=== PATIENT | female | born 1950 | race Caucasian/White ===

== ENCOUNTER → 2018-04-02 14:51 | Outpatient (CLI) | payer MEDICARE, OTHER, SELFPAY ==
--- NOTE | 2018-04-02 14:53 | DI.RAD.S_ITS ---
PROCEDURE: XR LUMBAR SPINE 2-3V INDICATIONS: lbp TECHNIQUE: 3 views of the lumbar spine were acquired. COMPARISON: [facility], CT, ABDOMEN/PELVIS WITH CONTRAST, 02/15/2011, 10:19. [facility], CR, L-SPINE 2-3 VIEWS, 06/20/2014, 16:33. FINDINGS: Bones: No fracture or focal osseous destruction. Hypoplastic 12th ribs. Mild narrowing of the lumbar disc spaces throughout grossly unchanged since 06/20/14, most pronounced at L2-L3. Diffuse facet arthropathy. Mild bilateral hip joint degeneration. Soft tissues: Cholelithiasis incidentally noted. There are scattered aortic vascular calcifications. IMPRESSION: Multilevel lumbar disc degeneration and facet arthropathy. No definite interval change since 06/20/14. Dictated by: Rojelio Rivas M.D. on 04/02/2018 at 15:36 Approved by: Rojelio Rivas M.D. on 04/02/2018 at 15:41
== END ==
PROVIDERS: Family Provider Family Medicine; PCP Family Medicine; Visit Provider Family Medicine
DX: M51.36 Other intervertebral disc degeneration, lumbar region (principal); M47.816 Spondylosis without myelopathy or radiculopathy, lumbar region
CPT/HCPCS: 72100

== ENCOUNTER → 2018-04-10 08:55 | Outpatient (CLI) | payer MEDICARE, OTHER, SELFPAY ==
--- NOTE | 2018-04-10 08:57 | DI.MRI.S_ITS ---
PROCEDURE: MR LUMBAR SPINE WO CON INDICATIONS: Bilateral low back pain with right sciatica TECHNIQUE: Noncontrast sagittal T1 spin echo and T2 fast echo, sagittal STIR, axial T1 and T2 fast spin echo through the lumbar spine. In cases with scoliosis, additional coronal T2 fast spin echo may be performed. COMPARISON: [facility], CR, XR LUMBAR SPINE 2-3V, 04/02/2018, 14:34. [facility], CR, L-SPINE 2-3 VIEWS, 06/20/2014, 16:33. [facility], CR, L-SPINE 2-3 VIEWS, 02/04/2008, 15:23. FINDINGS: Image quality: Excellent. Alignment and Curvature: There is normal bony alignment. Bone Marrow: Marrow is of normal overall signal. Increased T1 and T2 signals present at L3 most suggestive of hemangioma. No acute vertebral body compression fractures. Spinal Cord: Conus medullaris terminates at the L2 level. Visualized cord demonstrates normal signal and size. Paraspinous Soft Tissues: No paravertebral masses. Discs: Mild to moderate desiccation is present at the lumbar spine most notable at L2-3, L3-4. L1-L2: No disc bulge, spinal stenosis or foraminal narrowing. Mild facet and ligamentum flavum hypertrophy is present. L2-L3: Mild disc bulge with superimposed posterior central/left paracentral protrusion/extrusion. There is moderate compromise of the left lateral recess as well as proximal left neuroforamina. Moderate to severe spinal stenosis is present with facet and ligamentum flavum hypertrophy. Overall, moderate bilateral foraminal narrowing is present. L3-L4: Mild disc bulge with small posterior central protrusion/extrusion. There is mild spinal stenosis with mild bilateral foraminal narrowing. Facet and ligamentum flavum hypertrophy are present. L4-L5: Mild disc bulge with trace posterior central protrusion. Mild spinal stenosis is present. Mild to moderate bilateral foraminal narrowing, left greater than right with facet and ligamentum flavum hypertrophy. L5-S1: Mild disc bulge without spinal stenosis. Minimal to mild bilateral foraminal narrowing with facet and ligamentum flavum hypertrophy. IMPRESSION: 1. Prominent disc bulge with superimposed protrusion/extrusion identified at L2-3 and to a lesser extent L3-4. There is moderate to severe spinal stenosis at L2-3 secondary to protrusion/extrusion as well as compromise of left lateral recess and proximal left neuroforamina. 2. Multilevel foraminal narrowing most notable at L2-3 secondary to facet/ligamentum flavum arthropathy as well as protrusion/extrusion as above. Dictated by: Agnes Girard M.D. on 04/10/2018 at 10:40 Approved by: Agnes Girard M.D. on 04/10/2018 at 10:55
== END ==
PROVIDERS: Family Provider Family Medicine; PCP Family Medicine; Visit Provider Family Medicine
DX: M51.26 Other intervertebral disc displacement, lumbar region (principal); M48.061 Spinal stenosis, lumbar region without neurogenic claudication; M99.73 Connective tissue and disc stenosis of intervertebral foramina of lumbar region
CPT/HCPCS: 72148

== ENCOUNTER → 2019-01-15 07:50 | Outpatient (CLI) | payer MEDICARE, OTHER, SELFPAY ==
[2019-01-15 08:56] LABS: Add Manual Diff / Slide Review NO; Basophils Absolute Auto 100 /uL (0-100); Basophils Percent Auto 1.3 % (0-2); Eosinophils Absolute Auto 300 /uL (0-450); Eosinophils Percent Auto 3.1 % (2-4); Hematocrit 44.4 % (36-46); Hemoglobin 15.4 g/dL (12.0-16.0); Lymphocytes Absolute Auto 2000 /uL (1100-4500); Lymphocytes Percent Auto 21.5 % (25-40); Mean Corpuscular HGB Conc 34.6 % (30-36); Mean Corpuscular Hemoglobin 31.3 PG (26-34); Mean Corpuscular Volume 90.3 fL (80-100); Monocytes Absolute Auto 800 /uL (0-900); Monocytes Percent Auto 9.1 % (3-14); Neutrophils Absolute Auto 6000 /uL (1500-7000); Platelet Count 145 X10^3/uL (150-400); Red Blood Cell Count 4.92 X10^6/uL (4.0-5.2); Red Cell Distribution Width 14.4 % (11.6-14.8); White Blood Cell Count 9.2 X10^3/uL (4.5-11.0)
[2019-01-15 09:10] LABS: Alanine Aminotransferase 34 IU/L (9-52); Albumin 4.2 g/dL (3.5-5.0); Albumin Globulin Ratio 1.2 (1.0-2.8); Alkaline Phosphatase 98 U/L (38-126); Aspartate Aminotransferase 25 IU/L (14-36); BUN Creatinine Ratio 14.3 (6-22); Bilirubin Total 0.5 mg/dL (0.2-1.3); Blood Urea Nitrogen 10 mg/dL (7-17); Calcium 9.7 mg/dL (8.4-10.2); Carbon Dioxide 28 mmol/L (22-32); Chloride 102 mmol/L (98-107); Cholesterol 179 mg/dL (140-199); Estimated Glomerular Filt Rate > 60.0 mL/min (>60); Globulin 3.6 g/dL (1.7-4.1); Glucose 138 mg/dL (80-110); HDL Cholesterol 43 mg/dL (40-60); HEMOLYSIS < 15 (0-50); LDL Cholesterol Calculated 105 mg/dL (<100); Potassium 4.4 mmol/L (3.4-5.1); Sodium 140 mmol/L (137-145); Total Protein 7.8 g/dL (6.3-8.2); Triglycerides 155 mg/dL (35-150)
== END ==
PROVIDERS: PCP Family Medicine; Visit Provider Family Medicine
DX: E03.9 Hypothyroidism, unspecified (principal); E78.2 Mixed hyperlipidemia; G62.9 Polyneuropathy, unspecified; I10 Essential (primary) hypertension
CPT/HCPCS: 36415; 80053; 80061; 84443; 85025

== ENCOUNTER → 2019-01-21 11:37 | Outpatient (CLI) | payer MEDICARE, OTHER, SELFPAY ==
[2019-01-21 12:10] LABS: Hemoglobin A1C% w Est Avg Glu 5.9 % (4.0-6.0)
[2019-01-21 14:49] LABS: Creatinine Urine Random 33.8 mg/dL
[2019-01-21 14:55] LABS: Microalbumi Creatinin Ratio Ur 17.7 ug/mg CR (<30); Microalbumin Urine Random < 0.6 mg/dL (0-1.6)
== END ==
PROVIDERS: PCP Family Medicine; Visit Provider Family Medicine
DX: E78.2 Mixed hyperlipidemia (principal); E03.9 Hypothyroidism, unspecified; G62.9 Polyneuropathy, unspecified; I10 Essential (primary) hypertension
CPT/HCPCS: 36415; 82043; 82570; 83036

== ENCOUNTER → 2019-07-29 11:20 | Outpatient (CLI) | payer MEDICARE, OTHER, SELFPAY ==
--- NOTE | 2019-07-29 | DI.MG.S_ITS ---
BILATERAL DIGITAL SCREENING MAMMOGRAM 3D/2D WITH CAD: 07/29/2019 CLINICAL: Routine screening. Family history of breast cancer. Comparison is made to exams dated: 06/20/2017 mammogram, 04/11/2015 mammogram, and 05/11/2013 mammogram - [facility]. The tissue of both breasts is heterogeneously dense. This may lower the sensitivity of mammography. Current study was also evaluated with a Computer Aided Detection (CAD) system. There are benign calcifications in both breasts. No significant masses, calcifications, or other findings are seen in either breast. There has been no significant interval change. IMPRESSION: There is no mammographic evidence of malignancy. A 1 year screening mammogram is recommended. This exam was interpreted at Station ID: [id number]. NOTE: For mammograms, a report in lay terms will be sent to the patient. Approximately 15% of breast malignancies will not be visualized mammographically. In the management of a palpable breast mass, a negative mammogram must not discourage biopsy of a clinically suspicious lesion. Electronically Signed By: Bob salazar/jose angel:07/29/2019 12:41:51 letter sent: Normal Exam ACR BI-RADS Category 2: Benign Finding(s) [id number]
== END ==
PROVIDERS: PCP Family Medicine; Visit Provider Family Medicine
DX: Z12.31 Encounter for screening mammogram for malignant neoplasm of breast (principal); Z80.3 Family history of malignant neoplasm of breast
CPT/HCPCS: 77063; 77067

== ENCOUNTER → 2019-09-24 10:08 | Outpatient (CLI) | payer MEDICARE, OTHER, SELFPAY ==
--- NOTE | 2019-09-24 10:13 | DI.RAD.S_ITS ---
PROCEDURE: XR CHEST 2V INDICATIONS: chest pain/dyspnea TECHNIQUE: 2 views of the chest were acquired. COMPARISON: [facility], , CHEST 1 VIEW, 03/29/2012, 17:42. FINDINGS: Surgical changes and devices: None. Lungs and pleura: Diffuse interstitial prominence appears unchanged. No focal infiltrate or consolidation. No pleural effusions or pneumothorax. Mediastinum: Mediastinal contours are normal. Heart size is normal. Bones and chest wall: No suspicious bony abnormalities. Soft tissues appear unremarkable. IMPRESSION: No acute cardiopulmonary disease. Chronic diffuse interstitial prominence, unchanged. Dictated by: Gavin Diaz M.D. on 09/24/2019 at 11:03 Approved by: Gavin Diaz M.D. on 09/24/2019 at 11:04
[2019-09-24 10:43] LABS: Add Manual Diff / Slide Review NO; Basophils Absolute Auto 100 /uL (0-100); Basophils Percent Auto 1.1 % (0-2); Eosinophils Absolute Auto 200 /uL (0-450); Hemoglobin 15.1 g/dL (12.0-16.0); Lymphocytes Absolute Auto 2500 /uL (1100-4500); Lymphocytes Percent Auto 26.5 % (25-40); Mean Corpuscular HGB Conc 34.4 % (30-36); Mean Corpuscular Hemoglobin 31.3 PG (26-34); Mean Corpuscular Volume 91.2 fL (80-100); Monocytes Absolute Auto 800 /uL (0-900); Monocytes Percent Auto 8.6 % (3-14); Neutrophils Absolute Auto 5700 /uL (1500-7000); Neutrophils Percent Auto 61.8 % (50-75); Platelet Count 126 X10^3/uL (150-400); Red Blood Cell Count 4.82 X10^6/uL (4.0-5.2); Red Cell Distribution Width 14.1 % (11.6-14.8); White Blood Cell Count 9.3 X10^3/uL (4.5-11.0)
[2019-09-24 11:01] LABS: BUN Creatinine Ratio 12.5 (6-22); Blood Urea Nitrogen 10 mg/dL (7-17); Carbon Dioxide 30 mmol/L (22-32); Chloride 101 mmol/L (98-107); Creatine Kinase 48 U/L (30-135); Estimated Glomerular Filt Rate > 60.0 mL/min (>60); Glucose 95 mg/dL (80-110); HEMOLYSIS < 15 (0-50); Potassium 4.2 mmol/L (3.4-5.1); Sodium 140 mmol/L (137-145)
[2019-09-24 11:13] LABS: Troponin I 0.042 ng/mL (0.01-0.034)
== END ==
PROVIDERS: PCP Family Medicine; Visit Provider Internal Medicine
DX: R07.9 Chest pain, unspecified (principal); R06.00 Dyspnea, unspecified; J84.9 Interstitial pulmonary disease, unspecified
CPT/HCPCS: 36415; 71046; 80048; 82550; 84484; 85025

== ENCOUNTER 2019-09-24 14:26 | Emergency (ER) | payer MEDICARE, OTHER, SELFPAY ==
[2019-09-24] VITALS (8 sets, daily range): BP systolic 117–143; BP diastolic 54–76; PULSE 65–89; RESP 12–18; TEMP 37; O2SAT 11–98; BMI 32.4
--- NOTE | 2019-09-24 14:52 | ED_ITS ---
HPI - Chest Pain General Chief Complaint: Chest Pain Stated Complaint: blood test showed not enough blood to heart Time Seen by Provider: 09/24/19 14:32 Source: patient and old records reviewed Mode of arrival: Ambulatory Limitations: no limitations History of Present Illness HPI narrative: Patient is a 69-year-old female sent in by concern for cardiac ischemia. Patient states that 3 weeks ago she had severe chest pain in the center of her chest radiated to her left arm. She has since had some shortness of breath with exertion but nothing to really stop her. She was not evaluated at that time however she was able to get into her PCP today. She had abnormal EKG showing T-wave inversion in the septal leads new from 2011 but quite pronounced no ST elevations or depressions. She also had an indeterminate troponin of 0.042. PCP did contact on on-call Cardiology at [facility] the patient needs further testing evaluation and admission. Patient complains only of a very mild dull ache. She would not be here if it weren't for her children. She has significant family history of cardiac disease most of her relatives have stents. MD complaint: chest pain Onset (ago): week(s) (3) Pain location: substernal Severity scale (1-10): 1 Quality: aching Related Data Home Medications Medication Instructions Recorded Confirmed naproxen sodium 220 mg PO BIDCC #0 03/29/12 09/24/19 Resmed Aircurve BIPAP #1 ea 07/27/19 09/24/19 citalopram [Celexa] 20 mg PO DAILY 09/24/19 09/24/19 fluticasone propionate [Flonase 2 spray NASAL BEDTIME 09/24/19 09/24/19 Allergy Relief] furosemide 120 mg PO DAILY 09/24/19 09/24/19 pravastatin 20 mg PO BEDTIME 09/24/19 09/24/19 Previous Rx's Medication Instructions Recorded ropinirole 0.25 mg tablet 0.5 mg PO HS #180 tab 01/25/19 potassium chloride 20 mEq 20 meq PO BID #180 tab 04/29/19 tablet,extended release levothyroxine 88 mcg tablet 88 mcg PO QAM #90 tab 05/24/19 gabapentin 300 mg capsule 600 mg PO TID #540 cap 06/28/19 Allergies Allergy/AdvReac Type Severity Reaction Status Date / Time No Known Drug Allergies Allergy Verified 09/24/19 14:32 Review of Systems Review of Systems Narrative: GENERAL: Denies chills, fatigue, malaise, fever, sweats, travel HEENT: Denies sinus pain, ear pain, sore throat, difficulty swallowing, neck pain RESPIRATORY: Denies dyspnea, cough, wheezing, hemoptysis, sputum. CARDIOVASCULAR: See HPI GASTROINTESTINAL: Denies nausea, vomiting, abdominal pain, diarrhea, constipation, melena. : Denies dysuria, frequency, incontinence, hematuria, urinary retention, flank pain. MUSCULOSKELETAL: Denies weakness, joint pain, or bony pain SKIN: No rash, no erythema, no pruritus NEUROLOGIC: Denies weakness, dizziness, headache, numbness, change in speech, confusion PSYCHIATRIC: No concerning psychosocial issues. 12 point review of systems is negative except for those stated above and HPI Patient History Medical History Acne (Resolved) Central sleep apnea (Chronic) Chicken pox (Resolved ~1951) Fatigue (Chronic) Heavy menstrual period (Resolved) Hepatitis A (Chronic ~1953) History of adenomatous polyp of colon (Inactive 06/17/11) Hypothyroidism (Chronic) Irregular menstrual cycle (Resolved) Measles (Resolved ~1951) Mumps (Resolved ~1951) Nocturnal hypoxemia (Chronic) Obesity (BMI 30-39.9) (Chronic) Obstructive sleep apnea of adult (Chronic) Osteoarthritis (Chronic ~2013) Painful menstrual periods (Resolved) Plantar warts (Chronic) Restless leg syndrome (Chronic) Whooping cough (Resolved ~1951) Surgical History Anesthesia (Resolved) History of bladder surgery (Resolved ~1994) Status post hysterectomy (~1984) Status post tubal ligation (~1975) Family History Brother Heart disease Child Age: 52 Diabetes mellitus Hypertension High cholesterol Father Diabetes mellitus Heart disease Grandmother Diabetes mellitus Hypertension Mother Hypertension Grandmother Heart disease Sister Diabetes mellitus Hypertension Social History Smoking Status: Current every day smoker tobacco type: cigarettes alcohol intake frequency: a few times a month Exam Initial Vital Signs Initial Vital Signs: Vital Signs Temperature 98.6 F 09/24/19 14:28 Pulse Rate 89 09/24/19 14:28 Respiratory Rate 16 09/24/19 14:28 Blood Pressure 133/76 09/24/19 14:28 Pulse Oximetry 97 09/24/19 14:28 GENERAL: A stoic pleasant alert elderly female no acute distress HEENT: Head atraumatic,EOMI, pupils reactive, face symmetric CARDIOVASCULAR: Regular rate and rhythm without murmurs, rubs or gallops. RESPIRATORY: Breath sounds equal bilaterally, no wheezes rales or rhonchi. ABDOMEN: Soft, nontender. Normoactive bowel sounds all 4 quadrants. No guarding or rebound. EXTREMITIES: Normal range of motion, no clubbing or edema. Neurovascularly intact NEUROLOGICAL: Alert and oriented x4.Normal gait and speech. Cranial nerves II through XII grossly intact. SKIN: Warm, dry, no laceration, no petechiae, no rashes or lesions. Course Orders Ordered: ED Orders 09/24/19 14:40 EKG-12 Lead Stat 09/24/19 14:45 B Type Natriuretic Peptide Stat Partial Thromboplastin Time Stat Prothrombin Time INR Stat Troponin I Stat Discontinued Medications Aspirin (Aspirin Chew) 324 mg PO NOW ONE Stop: 09/24/19 15:03 Last Admin: 09/24/19 15:12 Dose: 324 mg Documented by: DILLON Consultations Consultation #1: Dr. Elder, cardiology updated patient's symptoms test results agrees with transfer and admit to hospitalist. No heparin at this time. Time: 16:05 Consultation #2: Dr. Rodriguez, hospitalist updated on patient's symptoms test results and Cardiology recommendations accepts patient for transfer Time: 16:45 Vital Signs Vital signs: Vital Signs - 8 hr 09/24/19 14:28 09/24/19 14:53 09/24/19 16:20 Temperature 98.6 F Pulse Rate 89 80 78 Respiratory Rate 16 12 17 Blood Pressure 133/76 Blood Pressure [Left Arm] 141/63 H 117/74 Pulse Oximetry 97 11 L 96 09/24/19 17:34 09/24/19 18:05 Temperature Pulse Rate 71 65 Respiratory Rate 17 15 Blood Pressure Blood Pressure [Left Arm] 120/61 122/60 Pulse Oximetry 96 96 MDM - Chest Pain Lab Data Attestation: I reviewed the patient's lab results. Labs: Lab Results 09/24/19 09/24/19 09/24/19 Range/Units 14:45 14:45 14:45 PT 11.5 (10.1-12.7) SECONDS INR 1.0 (0.9-1.3) APTT 29 (26.4-36.2) SECONDS Troponin I 0.043 H (0.01-0.034) ng/mL B-Natriuretic Peptide 179 H (<100) Imaging Data Chest x-ray: Radiologist's impression: PROCEDURE: XR CHEST 2V INDICATIONS: chest pain/dyspnea TECHNIQUE: 2 views of the chest were acquired. COMPARISON: [facility], , CHEST 1 VIEW, 03/29/2012, 17:42. FINDINGS: Surgical changes and devices: None. Lungs and pleura: Diffuse interstitial prominence appears unchanged. No focal infiltrate or consolidation. No pleural effusions or pneumothorax. Mediastinum: Mediastinal contours are normal. Heart size is normal. Bones and chest wall: No suspicious bony abnormalities. Soft tissues appear unremarkable. IMPRESSION: No acute cardiopulmonary disease. Chronic diffuse interstitial prominence, unchanged. Dictated by: Gaivn Diaz M.D. on 09/24/2019 at 11:03 ECG Data Attestation: I personally reviewed and interpreted this ECG as follows: Prior ECG tracings: available for review Interpretation: Normal sinus rhythm rate 79 p.r. interval 202 T-wave inversions noted in precordial leads actually improved from EKG in the office. They were much more pronounced. MDM Narrative Medical decision making narrative: Patient continues to be chest pain-free in the emergency department she is resting comfortably. She is given aspirin. This time cardiology does not recommend heparin. She has improvement in her EKG but does have very deep T-waves noted which are new along with indeterminate troponin which is essentially the same in the emergency department as was previously. Discharge Plan Departure Patient Disposition: [facility] Clinical Impression: Cardiac ischemia Chest pain Qualifiers: Chest pain type: other chest pain Qualified Code(s): R07.89 - Other chest pain Prescriptions: No Action naproxen sodium 220 MG tablet 220 mg PO BIDCC Qty: 0 RF: 0 ropinirole [Requip] 0.25 mg tablet 0.5 mg PO HS Qty: 180 RF: 1 potassium chloride 20 mEq tablet extended release 20 meq PO BID Qty: 180 RF: 3 levothyroxine 88 mcg tablet 88 mcg PO QAM Qty: 90 RF: 1 gabapentin 300 mg capsule 600 mg PO TID Qty: 540 RF: 2 citalopram [Celexa] 20 mg tablet 20 mg PO DAILY RF: 0 furosemide 40 mg tablet 120 mg PO DAILY RF: 0 pravastatin 20 mg tablet 20 mg PO BEDTIME RF: 0 fluticasone propionate [Flonase Allergy Relief] 50 mcg/actuation spray,suspension 2 spray NASAL BEDTIME RF: 0 (DME) Resmed Aircurve BIPAP Qty: 1 RF: 0 Referrals: Mathew De La Torre MD [Primary Care Provider] -
[2019-09-24 15:00] LABS: Prothrombin Time 11.5 SECONDS (10.1-12.7)
[2019-09-24 15:02] LABS: PTT Partial Thromboplastin Tim 29 SECONDS (26.4-36.2)
[2019-09-24 15:09] LABS: B Type Natriuretic Peptide 179 (<100)
[2019-09-24] MEDS: ASPIRIN 81 MG CHEW TAB 324 MG PO (15:12)
[2019-09-24 15:17] LABS: Troponin I 0.043 ng/mL (0.01-0.034)
== END 2019-09-24 20:54 | disposition short-term general hospital (02) ==
PROVIDERS: Emergency Provider Emergency Medicine; PCP Family Medicine
DX: I25.9 Chronic ischemic heart disease, unspecified (principal); R07.89 Other chest pain; R06.00 Dyspnea, unspecified; J84.9 Interstitial pulmonary disease, unspecified
CPT/HCPCS: 36415; 71046; 80048; 82550; 83880; 84484; 85025; 85610; 85730; 93005; 99283; 99285

== ENCOUNTER → 2019-10-04 15:56 | Outpatient (CLI) | payer MEDICARE, OTHER, SELFPAY ==
[2019-10-04 17:10] LABS: BUN Creatinine Ratio 15.7 (6-22); Blood Urea Nitrogen 11 mg/dL (7-17); Calcium 9.7 mg/dL (8.4-10.2); Carbon Dioxide 26 mmol/L (22-32); Chloride 101 mmol/L (98-107); Estimated Glomerular Filt Rate > 60.0 mL/min (>60); Glucose 84 mg/dL (80-110); HEMOLYSIS < 15 (0-50); Potassium 4.5 mmol/L (3.4-5.1); Sodium 137 mmol/L (137-145)
== END ==
PROVIDERS: PCP Family Medicine; Visit Provider Family Medicine
DX: I25.9 Chronic ischemic heart disease, unspecified (principal)
CPT/HCPCS: 36415; 80048; 83735

== ENCOUNTER 2019-10-11 17:54 | Emergency (ER) | payer MEDICARE, OTHER, SELFPAY ==
[2019-10-11 18:06] VITALS: BP 164/67; PULSE 84; RESP 19; TEMP 37.9; O2SAT 99; BMI 35.8
[2019-10-11] MEDS: SODIUM CHLORIDE 0.9% 1,000 ML 150 ML IV (18:52)
[2019-10-11 18:54] LABS: Add Manual Diff / Slide Review NO; Basophils Absolute Auto 100 /uL (0-100); Basophils Percent Auto 0.6 % (0-2); Eosinophils Absolute Auto 200 /uL (0-450); Eosinophils Percent Auto 1.2 % (2-4); Hematocrit 42.7 % (36-46); Hemoglobin 14.8 g/dL (12.0-16.0); Lymphocytes Absolute Auto 1600 /uL (1100-4500); Lymphocytes Percent Auto 8.4 % (25-40); Mean Corpuscular HGB Conc 34.6 % (30-36); Mean Corpuscular Hemoglobin 31.3 PG (26-34); Mean Corpuscular Volume 90.3 fL (80-100); Monocytes Absolute Auto 1200 /uL (0-900); Monocytes Percent Auto 6.3 % (3-14); Neutrophils Absolute Auto 16500 /uL (1500-7000); Neutrophils Percent Auto 83.5 % (50-75); Platelet Count 164 X10^3/uL (150-400); Red Blood Cell Count 4.73 X10^6/uL (4.0-5.2); Red Cell Distribution Width 13.5 % (11.6-14.8); White Blood Cell Count 19.7 X10^3/uL (4.5-11.0)
[2019-10-11 18:56] LABS: Bacteria Urine Many (>30); Culture Indicated Urine Specimen Cultured; RBC Urine 1-5/HPF (0-5/HPF); Squamous Epithelial Cell Urine 0-1 /HPF (0-5/HPF); Urine Comments LEU ESTERASE +; WBC Urine 1-5/HPF (0-5/HPF)
[2019-10-11 19:07] VITALS: BP 144/57; PULSE 86; RESP 17; O2SAT 97
--- NOTE | 2019-10-11 19:08 | DI.CT.S_ITS ---
PROCEDURE: CT ABDOMEN PELVIS W CON INDICATIONS: abd pain, llq, fever TECHNIQUE: After the administration of oral and intravenous contrast, 5 mm thick sections acquired from the diaphragms to the symphysis. 5 mm thick coronal and sagittal reformats were performed. For radiation dose reduction, the following was used: automated exposure control, adjustment of mA and/or kV according to patient size. COMPARISON: [facility], CT, ABDOMEN/PELVIS WITH CONTRAST, 02/15/2011, 10:19. FINDINGS: Image quality: Excellent. ABDOMEN: Lung bases: Dependent atelectasis in posterior aspect of bilateral lung bases are seen. Heart size is mildly enlarged, no pericardial effusion. Solid organs: Liver is normal in size and enhancement. Hepatic steatosis is seen. No discrete hepatic lesion. Gallbladder contains a calcified stone within its dependent portion. No gallbladder wall thickening or pericholecystic fluid.. Biliary system is non-dilated. Pancreas enhances normally. Spleen is normal in size and enhancement. No adrenal nodules. Right kidney is normal in size and enhancement, without hydronephrosis. There is moderate left-sided hydronephrosis and proximal hydroureter with moderate left perinephric fat stranding. 6 mm calcification is seen in proximal left ureter just below the level of left UVJ. Peritoneum and bowel: Stomach, small bowel, and colon loops are normal in caliber and wall thickness. No free fluid or air. Sigmoid diverticulosis is seen, no CT evidence of acute diverticulitis. Nodes and vessels: No retroperitoneal or mesenteric adenopathy. Aorta and inferior vena cava are normal in caliber. Miscellaneous: No ventral hernias. PELVIS: Genitourinary: Bladder wall thickness is normal. Miscellaneous: No inguinal hernias or adenopathy. Bones: No suspicious bony lesions. No vertebral body compression fractures. IMPRESSION: 1. 6 mm left proximal ureteral stone with moderate left-sided hydronephrosis and perinephric fat stranding. No right-sided renal stone or hydronephrosis. Normal appearing urinary bladder. 2. No bowel obstruction. No free fluid or free air. No evidence of acute appendicitis or diverticulitis. 3. Cholelithiasis, no evidence of acute cholecystitis. Hepatic steatosis. Dictated by: Richardson Paris M.D. on 10/11/2019 at 21:01 Approved by: Ricahrdson Paris M.D. on 10/11/2019 at 21:10
[2019-10-11 19:10] LABS: Creatine Kinase 65 U/L (30-135)
[2019-10-11] MEDS: ONDANSETRON 4 MG/2 ML INJ IV (19:28)
[2019-10-11] MEDS: MORPHINE 4 MG/ML INJ IV (19:28)
[2019-10-11 19:50] LABS: Procalcitonin < 0.05 ng/mL (<0.5)
[2019-10-11 20:00] VITALS: BP 138/60; PULSE 91; O2SAT 91
[2019-10-11 20:14] LABS: Alanine Aminotransferase 14 IU/L (<35); Albumin 3.9 g/dL (3.5-5.0); Albumin Globulin Ratio 1.3 (1.0-2.8); Alkaline Phosphatase 89 U/L (38-126); Amylase 62 U/L (30-110); Aspartate Aminotransferase 19 IU/L (14-36); BUN Creatinine Ratio 13.8 (6-22); Bilirubin Total 0.6 mg/dL (0.2-1.3); Blood Urea Nitrogen 11 mg/dL (7-17); Calcium 9.3 mg/dL (8.4-10.2); Carbon Dioxide 26 mmol/L (22-32); Chloride 104 mmol/L (98-107); Estimated Glomerular Filt Rate > 60.0 mL/min (>60); Globulin 3.1 g/dL (1.7-4.1); Glucose 110 mg/dL (80-110); HEMOLYSIS < 15 (0-50); Lipase 75 U/L (23-300); Potassium 4.2 mmol/L (3.4-5.1); Sodium 136 mmol/L (137-145)
[2019-10-11 20:46] VITALS: BP 135/61; PULSE 87; TEMP 37.7; O2SAT 94
--- NOTE | 2019-10-11 21:13 | ED.ABDPAIN ---
HPI - Abdominal Pain <Pgegy CaraballoMARE toribioP-BC - Last Filed: 10/11/19 22:04> General Chief Complaint: Abdominal Pain Stated Complaint: Left abd pain and lower back, very cold Time Seen by Provider: 10/11/19 18:14 Source: patient and family Mode of arrival: Wheelchair Limitations: no limitations History of Present Illness HPI narrative: The patient is a 69-year-old female current smoker with history of cardiac disease and stents 2 weeks ago presents with a chief complaint of left back pain radiating around her left flank to her left lower abdomen. She states this started this afternoon. She also complains of muscle aches and chills. She denies any nausea vomiting or diarrhea. She complains of subjective fevers she denies any dysuria urgency or frequency. 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 She denies any chest pain or shortness of breath. She is accompanied by her daughters. They are very concerned about cardiac disease at this point. Related Data Home Medications Medication Instructions Recorded Confirmed Resmed Aircurve BIPAP #1 ea 07/27/19 10/04/19 fluticasone propionate [Flonase 2 spray NASAL BEDTIME 09/24/19 10/04/19 Allergy Relief] levothyroxine 88 mcg PO 4-6XD 09/24/19 10/04/19 Previous Rx's Medication Instructions Recorded ropinirole 0.25 mg tablet 0.5 mg PO HS #180 tab 01/25/19 gabapentin 300 mg capsule 600 mg PO TID #540 cap 06/28/19 citalopram 20 mg tablet 20 mg PO DAILY #90 tab 10/04/19 furosemide 80 mg tablet 80 mg PO DAILY #90 tab 10/04/19 lisinopril 2.5 mg tablet 2.5 mg PO DAILY #90 tab 10/04/19 rosuvastatin 40 mg tablet 40 mg PO DAILY #90 tab 10/04/19 ondansetron 4 mg PO Q6H PRN #20 tab 10/11/19 sulfamethoxazole-trimethoprim 1 tab PO BID #14 tab 10/11/19 [Bactrim DS] tamsulosin [Flomax] 0.4 mg PO DAILY #7 cap 10/11/19 tramadol 50 mg PO Q6H PRN #14 tab 11/25/19 Allergies Allergy/AdvReac Type Severity Reaction Status Date / Time No Known Drug Allergies Allergy Verified 10/04/19 15:13 Review of Systems <DOROTEO Swartz - Last Filed: 10/11/19 22:04> Review of Systems Narrative: GENERAL: See HPI ats. HEENT: Denies sinus pain, ear pain, sore throat, difficulty swallowing, dizziness. RESPIRATORY: Denies dyspnea, cough, wheezing, hemoptysis, sputum. CARDIOVASCULAR: Denies chest pain, palpitations, orthopnea, edema, GASTROINTESTINAL: See HPI : Denies dysuria, frequency, incontinence, hematuria, urinary retention. MUSCULOSKELETAL: denies weakness, joint pain, or bony pain SKIN: Denies rash, skin lesions, or other NEUROLOGIC: Denies weakness, headache, numbness, change in speech, confusion, seizures, incoordination. PSYCHIATRIC: No concerning psychosocial issues. 12 point review of systems is negative except for those stated above Patient History <DOROTEO Swartz - Last Filed: 10/11/19 22:04> Medical History Acne (Resolved) Central sleep apnea (Chronic) Chicken pox (Resolved ~1951) Fatigue (Chronic) Heavy menstrual period (Resolved) Hepatitis A (Chronic ~1953) History of adenomatous polyp of colon (Inactive 06/17/11) Hypothyroidism (Chronic) Irregular menstrual cycle (Resolved) Measles (Resolved ~1951) Mumps (Resolved ~1951) Nocturnal hypoxemia (Chronic) Obesity (BMI 30-39.9) (Chronic) Obstructive sleep apnea of adult (Chronic) Osteoarthritis (Chronic ~2013) Painful menstrual periods (Resolved) Plantar warts (Chronic) Restless leg syndrome (Chronic) Whooping cough (Resolved ~1951) Surgical History Anesthesia (Resolved) History of bladder surgery (Resolved ~1994) Status post hysterectomy (~1984) Status post tubal ligation (~1975) Family History Brother Heart disease Child Age: 52 Diabetes mellitus Hypertension High cholesterol Father Diabetes mellitus Heart disease Grandmother Diabetes mellitus Hypertension Mother Hypertension Grandmother Heart disease Sister Diabetes mellitus Hypertension Social History Smoking Status: Current every day smoker tobacco type: cigarettes alcohol intake frequency: a few times a month Substance Use Type: does not use Exam <DOROTEO Swartz - Last Filed: 10/11/19 22:04> Narrative Exam Narrative: GENERAL: Elderly female lying on stretcher appears uncomfortable HEAD: Atraumatic. Normocephalic. No temporal or scalp tenderness. EYES: Pupils equal round and reactive. Extraocular motions intact. No scleral icterus. No injection or drainage. ENT: Nose without bleeding, purulent drainage or septal hematoma. Throat without erythema, tonsillar hypertrophy or exudate. Uvula midline. Airway patent. NECK: Trachea midline. No JVD or lymphadenopathy. Supple, nontender, no meningeal signs. CARDIOVASCULAR: Regular rate and rhythm RESPIRATORY: Clear to auscultation. Breath sounds equal bilaterally. No wheezes, rales, or rhonchi. No cough. No increased respiratory effort. No accessory muscle use. GASTROINTESTINAL: Abdomen soft, diffusely tender, nondistended. No hepato-splenomegaly, or palpable masses. No guarding. EXTREMITIES: No clubbing, cyanosis, or edema. No joint tenderness, effusion, or edema noted. BACK: Nontender without deformity or crepitance. No flank tenderness. No CVA tenderness bilaterally. NEURO: AOx3. SKIN: No rash or erythema. Initial Vital Signs Initial Vital Signs: Vital Signs Temperature 100.2 F H 10/11/19 18:06 Pulse Rate 84 10/11/19 18:06 Respiratory Rate 10/11/19 18:06 Blood Pressure 164/67 H 10/11/19 18:06 Pulse Oximetry 99 10/11/19 18:06 <Pegyg Amaya DO - Last Filed: 10/12/19 01:32> Initial Vital Signs Initial Vital Signs: Vital Signs Temperature 100.2 F H 10/11/19 18:06 Pulse Rate 84 10/11/19 18:06 Respiratory Rate 19 10/11/19 18:06 Blood Pressure 164/67 H 10/11/19 18:06 Pulse Oximetry 99 10/11/19 18:06 Course <DOROTEO Swartz - Last Filed: 10/11/19 22:04> Orders Ordered: ED Orders 10/11/19 18:17 Urine Culture Stat Urine Microscopic Stat 10/11/19 18:49 EKG-12 Lead Stat 10/11/19 18:50 Complete Blood Count AUTO DIFF Stat Procalcitonin Stat Troponin & CK Cardiac Panel Stat 10/11/19 19:08 CT abdomen pelvis w con Stat 10/11/19 19:53 Amylase Stat Comprehensive Metabolic Panel Stat Lipase Stat Discontinued Medications Hydrocodone Bitart/Acetaminophen ([place] 5/325) 1 tab PO NOW ONE Stop: 10/11/19 21:27 Hydrocodone Bitart/Acetaminophen (Vicodin Prepack) 1 bottle MISC SEEINSTR ONE Stop: 10/11/19 21:59 Last Admin: 10/11/19 22:13 Dose: 1 bottle Documented by: KANDI Sodium Chloride (Normal Saline 0.9%) 1,000 mls @ 150 mls/hr IV CONT SHA Last Infusion: 10/11/19 20:35 Dose: 0 mls/hr Documented by: Admin: 10/11/19 18:52 Dose: 150 mls/hr Documented by: BELLA Morphine Sulfate (Morphine) 4 mg IV NOW ONE Stop: 10/11/19 19:08 Last Admin: 10/11/19 19:28 Dose: 4 mg Documented by: BELLA Ondansetron HCl (Zofran) 4 mg IV NOW ONE Stop: 10/11/19 19:08 Last Admin: 10/11/19 19:28 Dose: 4 mg Documented by: BELLA Ondansetron HCl (Zofran Odt) 4 mg SL NOW ONE Stop: 10/11/19 21:27 Last Admin: 10/11/19 22:09 Dose: 4 mg Documented by: KANDI Ondansetron HCl (Zofran Odt Prepack) 1 bottle MISC SEEINSTR ONE Stop: 10/11/19 21:45 Last Admin: 10/11/19 22:08 Dose: 1 bottle Documented by: KANDI Tamsulosin HCl (Flomax) 0.4 mg PO NOW ONE Stop: 10/11/19 21:45 Last Admin: 10/11/19 22:09 Dose: 0.4 mg Documented by: KANDI Tramadol HCl (Ultram 50mg Prepack) 1 bottle MISC SEEINSTR ONE Stop: 10/11/19 21:45 Last Admin: 10/11/19 22:08 Dose: 1 bottle Documented by: KANDI Tramadol HCl (Ultram) 50 mg PO NOW ONE Stop: 10/11/19 21:53 Last Admin: 10/11/19 22:09 Dose: 50 mg Documented by: KANDI Trimethoprim/Sulfamethoxazole (Bactrim Ds) 1 tab PO NOW ONE Stop: 10/11/19 21:45 Last Admin: 10/11/19 22:09 Dose: 1 tab Documented by: KANDI Vital Signs Vital signs: Vital Signs - 8 hr 10/11/19 18:06 10/11/19 19:07 10/11/19 20:00 Temperature 100.2 F H Pulse Rate 84 86 91 H Respiratory Rate 19 17 Blood Pressure 164/67 H Blood Pressure [Right Arm] 144/57 H 138/60 Pulse Oximetry 99 97 91 10/11/19 20:46 10/11/19 21:30 10/11/19 22:00 Temperature 99.9 F H Pulse Rate 87 86 86 Respiratory Rate 13 Blood Pressure Blood Pressure [Right Arm] 135/61 143/59 H 156/62 H Pulse Oximetry 94 93 93 <Peggy Amaya, - Last Filed: 10/12/19 01:32> Orders Ordered: ED Orders 10/11/19 18:17 Urine Culture Stat Urine Microscopic Stat 10/11/19 18:49 EKG-12 Lead Stat 10/11/19 18:50 Complete Blood Count AUTO DIFF Stat Procalcitonin Stat Troponin & CK Cardiac Panel Stat 10/11/19 19:08 CT abdomen pelvis w con Stat 10/11/19 19:53 Amylase Stat Comprehensive Metabolic Panel Stat Lipase Stat Discontinued Medications Hydrocodone Bitart/Acetaminophen ([place] 5/325) 1 tab PO NOW ONE Stop: 10/11/19 21:27 Hydrocodone Bitart/Acetaminophen (Vicodin Prepack) 1 bottle MISC SEEINSTR ONE Stop: 10/11/19 21:59 Last Admin: 10/11/19 22:13 Dose: 1 bottle Documented by: KANDI Sodium Chloride (Normal Saline 0.9%) 1,000 mls @ 150 mls/hr IV CONT SHA Last Infusion: 10/11/19 20:35 Dose: 0 mls/hr Documented by: Admin: 10/11/19 18:52 Dose: 150 mls/hr Documented by: BELLA Morphine Sulfate (Morphine) 4 mg IV NOW ONE Stop: 10/11/19 19:08 Last Admin: 10/11/19 19:28 Dose: 4 mg Documented by: BELLA Ondansetron HCl (Zofran) 4 mg IV NOW ONE Stop: 10/11/19 19:08 Last Admin: 10/11/19 19:28 Dose: 4 mg Documented by: BELLA Ondansetron HCl (Zofran Odt) 4 mg SL NOW ONE Stop: 10/11/19 21:27 Last Admin: 10/11/19 22:09 Dose: 4 mg Documented by: KANDI Ondansetron HCl (Zofran Odt Prepack) 1 bottle MISC SEEINSTR ONE Stop: 10/11/19 21:45 Last Admin: 10/11/19 22:08 Dose: 1 bottle Documented by: KANDI Tamsulosin HCl (Flomax) 0.4 mg PO NOW ONE Stop: 10/11/19 21:45 Last Admin: 10/11/19 22:09 Dose: 0.4 mg Documented by: KANDI Tramadol HCl (Ultram 50mg Prepack) 1 bottle MISC SEEINSTR ONE Stop: 10/11/19 21:45 Last Admin: 10/11/19 22:08 Dose: 1 bottle Documented by: KANDI Tramadol HCl (Ultram) 50 mg PO NOW ONE Stop: 10/11/19 21:53 Last Admin: 10/11/19 22:09 Dose: 50 mg Documented by: KANDI Trimethoprim/Sulfamethoxazole (Bactrim Ds) 1 tab PO NOW ONE Stop: 10/11/19 21:45 Last Admin: 10/11/19 22:09 Dose: 1 tab Documented by: KANDI Vital Signs Vital signs: Vital Signs - 8 hr 10/11/19 18:06 10/11/19 19:07 10/11/19 20:00 Temperature 100.2 F H Pulse Rate 84 86 91 H Respiratory Rate 19 17 Blood Pressure 164/67 H Blood Pressure [Right Arm] 144/57 H 138/60 Pulse Oximetry 99 97 91 10/11/19 20:46 10/11/19 21:30 10/11/19 22:00 Temperature 99.9 F H Pulse Rate 87 86 86 Respiratory Rate 13 Blood Pressure Blood Pressure [Right Arm] 135/61 143/59 H 156/62 H Pulse Oximetry 94 93 93 MDM - Abdominal Pain <Peggy Martines, LOW ALTITUDE [employer]NER-BC - Last Filed: 10/11/19 22:04> Lab Data Result diagrams: 10/11/19 18:50 10/11/19 19:53 Labs: Lab Results 10/11/19 10/11/19 10/11/19 Range/Units 18:17 18:50 18:50 WBC 19.7 H (4.5-11.0) X10^3/uL RBC 4.73 (4.0-5.2) X10^6/uL Hgb 14.8 (12.0-16.0) g/dL Hct 42.7 (36-46) % MCV 90.3 (80-100) fL MCH 31.3 (26-34) PG MCHC 34.6 (30-36) % RDW 13.5 (11.6-14.8) % Plt Count 164 (150-400) X10^3/uL Neut % (Auto) 83.5 H (50-75) % Lymph % (Auto) 8.4 L (25-40) % [place] % (Auto) 6.3 (3-14) % Eos % (Auto) 1.2 L (2-4) % Baso % (Auto) 0.6 (0-2) % Neut # (Auto) 68281 H (9726-3522) /uL Lymph # (Auto) 1600 (1618-6525) /uL [place] # (Auto) 1200 H (0-900) /uL Eos # (Auto) 200 (0-450) /uL Baso # (Auto) 100 (0-100) /uL Sodium (137-145) mmol/L Potassium (3.4-5.1) mmol/L Chloride (98-107) mmol/L Carbon Dioxide (22-32) mmol/L BUN (7-17) mg/dL Creatinine (0.52-1.04) mg/dL Estimated GFR (>60) mL/min BUN/Creatinine Ratio (6-22) Glucose (80-110) mg/dL Calcium (8.4-10.2) mg/dL Total Bilirubin (0.2-1.3) mg/dL AST (14-36) IU/L ALT (<35) IU/L Alkaline Phosphatase (38-126) U/L Total Creatine Kinase (30-135) U/L CK-MB (CK-2) CK-MB (CK-2) Rel Index Troponin I (0.01-0.034) ng/mL Total Protein (6.3-8.2) g/dL Albumin (3.5-5.0) g/dL Globulin (1.7-4.1) g/dL Albumin/Globulin Ratio (1.0-2.8) Amylase (30-110) U/L Lipase (23-300) U/L Procalcitonin < 0.05 (<0.5) ng/mL Urine RBC 1-5/hpf (0-5/HPF) Urine WBC 1-5/hpf (0-5/HPF) Ur Squamous Epith Cells 0-1 /hpf (0-5/HPF) Urine Bacteria Many (>30) H (None) Ur Culture Indicated? Specimen cultured Micro UA Comment Jessica esterase + 10/11/19 10/11/19 Range/Units 18:50 19:53 WBC (4.5-11.0) X10^3/uL RBC (4.0-5.2) X10^6/uL Hgb (12.0-16.0) g/dL Hct (36-46) % MCV (80-100) fL MCH (26-34) PG MCHC (30-36) % RDW (11.6-14.8) % Plt Count (150-400) X10^3/uL Neut % (Auto) (50-75) % Lymph % (Auto) (25-40) % [place] % (Auto) (3-14) % Eos % (Auto) (2-4) % Baso % (Auto) (0-2) % Neut # (Auto) (7273-9790) /uL Lymph # (Auto) (7054-3745) /uL [place] # (Auto) (0-900) /uL Eos # (Auto) (0-450) /uL Baso # (Auto) (0-100) /uL Sodium 136 L (137-145) mmol/L Potassium 4.2 (3.4-5.1) mmol/L Chloride 104 (98-107) mmol/L Carbon Dioxide 26 (22-32) mmol/L BUN 11 (7-17) mg/dL Creatinine 0.80 (0.52-1.04) mg/dL Estimated GFR > 60.0 (>60) mL/min BUN/Creatinine Ratio 13.8 (6-22) Glucose 110 (80-110) mg/dL Calcium 9.3 (8.4-10.2) mg/dL Total Bilirubin 0.6 (0.2-1.3) mg/dL AST 19 (14-36) IU/L ALT 14 (<35) IU/L Alkaline Phosphatase 89 (38-126) U/L Total Creatine Kinase 65 (30-135) U/L CK-MB (CK-2) TNP CK-MB (CK-2) Rel Index TNP Troponin I 0.020 (0.01-0.034) ng/mL Total Protein 7.0 (6.3-8.2) g/dL Albumin 3.9 (3.5-5.0) g/dL Globulin 3.1 (1.7-4.1) g/dL Albumin/Globulin Ratio 1.3 (1.0-2.8) Amylase 62 (30-110) U/L Lipase 75 (23-300) U/L Procalcitonin (<0.5) ng/mL Urine RBC (0-5/HPF) Urine WBC (0-5/HPF) Ur Squamous Epith Cells (0-5/HPF) Urine Bacteria (None) Ur Culture Indicated? Micro UA Comment Point of care testing: Urine Dip Bedside Urine Glucose Negative Bedside Urine Bilirubin - Negative Bedside Urine Ketone - Negative Urine Specific [place] 1.010 Bedside Urine Occult Blood + Bedside Urine pH 7.0 Bedside Urine Protein - Negative Bedside Urine Urobilinogen - Negative Bedside Urine Nitrite - Negative Bedside Urine Leukocytes + [address] scan - abdomen: Radiologist's impression: [address] [address] [address] Scan Report Signed Patient: Madai Portillo LMR#: [id number] : 8Acct:[id number] Age/Sex: 69 / FDate of Service: 10/11/19 Loc: ED Accession Number: [id number] Procedure: CT abdomen pelvis w con Ordering Provider: Peggy MartinesP-BC PROCEDURE: CT ABDOMEN PELVIS W CON INDICATIONS: abd pain, llq, fever TECHNIQUE: After the administration of oral and intravenous contrast, 5 mm thick sections acquired from the diaphragms to the symphysis. 5 mm thick coronal and sagittal reformats were performed. For radiation dose reduction, the following was used: automated exposure control, adjustment of mA and/or kV according to patient size. COMPARISON: [facility], CT, ABDOMEN/PELVIS WITH CONTRAST, 02/15/2011, 10:19. FINDINGS: Image quality: Excellent. ABDOMEN: Lung bases: Dependent atelectasis in posterior aspect of bilateral lung bases are seen. Heart size is mildly enlarged, no pericardial effusion. Solid organs: Liver is normal in size and enhancement. Hepatic steatosis is seen. No discrete hepatic lesion. Gallbladder contains a calcified stone within its dependent portion. No gallbladder wall thickening or pericholecystic fluid.. Biliary system is non-dilated. Pancreas enhances normally. Spleen is normal in size and enhancement. No adrenal nodules. Right kidney is normal in size and enhancement, without hydronephrosis. There is moderate left-sided hydronephrosis and proximal hydroureter with moderate left perinephric fat stranding. 6 mm calcification is seen in proximal left ureter just below the level of left UVJ. Peritoneum and bowel: Stomach, small bowel, and colon loops are normal in caliber and wall thickness. No free fluid or air. Sigmoid diverticulosis is seen, no CT evidence of acute diverticulitis. Nodes and vessels: No retroperitoneal or mesenteric adenopathy. Aorta and inferior vena cava are normal in caliber. Miscellaneous: No ventral hernias. PELVIS: Genitourinary: Bladder wall thickness is normal. Miscellaneous: No inguinal hernias or adenopathy. Bones: No suspicious bony lesions. No vertebral body compression fractures. IMPRESSION: 1. 6 mm left proximal ureteral stone with moderate left-sided hydronephrosis and perinephric fat stranding. No right-sided renal stone or hydronephrosis. Normal appearing urinary bladder. 2. No bowel obstruction. No free fluid or free air. No evidence of acute appendicitis or diverticulitis. 3. Cholelithiasis, no evidence of acute cholecystitis. Hepatic steatosis. Dictated by: Richardson Paris M.D. on 10/11/2019 at 21:01 Approved by: Richardson Paris M.D. on 10/11/2019 at 21:10 ECG Data Attestation: I personally reviewed and interpreted this ECG as follows: Interpretation: Sinus rhythm. Ventricular rate 77. P.r. interval 186. QRS duration 84. No ectopy noted. viewed by Dr Amaya 19:05 [facility] Narrative Medical decision making narrative: The patient is a 69-year-old female who presents with a chief complaint of flank and stomach pain. She is noted to have leukocytosis on initial labs white blood cell count 19 and to have low-grade fevers. Less given her exam, obtained a CT scan of her abdomen. Her family is very concerned about her cardiac status, I did obtain an EKG and a troponin. Troponin came back the low threshold for this facility. She was given IV fluids, pain medication and nausea medication. Her urine is concerning for infection, with bacteria, leukocyte esterase combined with her leukocytosis and low-grade fevers. CT scan illustrate a 6 mm stone on left ureter, proximal. Given her labs, I spoke with Dr. London on-call for [facility], as the patient wishes to follow up with them. He states he will see her in clinic. Per his recommendations, give her prescription of tramadol, [place] for breakthrough pain. Encouraged Tylenol Motrin. I also started her on Flomax and Bactrim. Her procalcitonin is less than 0.05. She is tolerating p.o. fluids. She requests to go home multiple times. I discussed at length that she needs to follow up with Urology. Discussed very strict return precautions the emergency department. Patient has no questions or concerns upon discharge and states understanding of return precautions as well as follow-up care. Discharged home with daughters. <Peggy Amaya, - Last Filed: 10/12/19 01:32> Lab Data Labs: Lab Results 10/11/19 10/11/19 10/11/19 Range/Units 18:17 18:50 18:50 WBC 19.7 H (4.5-11.0) X10^3/uL RBC 4.73 (4.0-5.2) X10^6/uL Hgb 14.8 (12.0-16.0) g/dL Hct 42.7 (36-46) % MCV 90.3 (80-100) fL MCH 31.3 (26-34) PG MCHC 34.6 (30-36) % RDW 13.5 (11.6-14.8) % Plt Count 164 (150-400) X10^3/uL Neut % (Auto) 83.5 H (50-75) % Lymph % (Auto) 8.4 L (25-40) % [place] % (Auto) 6.3 (3-14) % Eos % (Auto) 1.2 L (2-4) % Baso % (Auto) 0.6 (0-2) % Neut # (Auto) 30869 H (7222-8051) /uL Lymph # (Auto) 1600 (5065-6931) /uL [place] # (Auto) 1200 H (0-900) /uL Eos # (Auto) 200 (0-450) /uL Baso # (Auto) 100 (0-100) /uL Sodium (137-145) mmol/L Potassium (3.4-5.1) mmol/L Chloride (98-107) mmol/L Carbon Dioxide (22-32) mmol/L BUN (7-17) mg/dL Creatinine (0.52-1.04) mg/dL Estimated GFR (>60) mL/min BUN/Creatinine Ratio (6-22) Glucose (80-110) mg/dL Calcium (8.4-10.2) mg/dL Total Bilirubin (0.2-1.3) mg/dL AST (14-36) IU/L ALT (<35) IU/L Alkaline Phosphatase (38-126) U/L Total Creatine Kinase (30-135) U/L CK-MB (CK-2) CK-MB (CK-2) Rel Index Troponin I (0.01-0.034) ng/mL Total Protein (6.3-8.2) g/dL Albumin (3.5-5.0) g/dL Globulin (1.7-4.1) g/dL Albumin/Globulin Ratio (1.0-2.8) Amylase (30-110) U/L Lipase (23-300) U/L Procalcitonin < 0.05 (<0.5) ng/mL Urine RBC 1-5/hpf (0-5/HPF) Urine WBC 1-5/hpf (0-5/HPF) Ur Squamous Epith Cells 0-1 /hpf (0-5/HPF) Urine Bacteria Many (>30) H (None) Ur Culture Indicated? Specimen cultured Micro UA Comment Jessica esterase + 10/11/19 10/11/19 Range/Units 18:50 19:53 WBC (4.5-11.0) X10^3/uL RBC (4.0-5.2) X10^6/uL Hgb (12.0-16.0) g/dL Hct (36-46) % MCV (80-100) fL MCH (26-34) PG MCHC (30-36) % RDW (11.6-14.8) % Plt Count (150-400) X10^3/uL Neut % (Auto) (50-75) % Lymph % (Auto) (25-40) % [place] % (Auto) (3-14) % Eos % (Auto) (2-4) % Baso % (Auto) (0-2) % Neut # (Auto) (8895-9057) /uL Lymph # (Auto) (3291-4510) /uL [place] # (Auto) (0-900) /uL Eos # (Auto) (0-450) /uL Baso # (Auto) (0-100) /uL Sodium 136 L (137-145) mmol/L Potassium 4.2 (3.4-5.1) mmol/L Chloride 104 (98-107) mmol/L Carbon Dioxide 26 (22-32) mmol/L BUN 11 (7-17) mg/dL Creatinine 0.80 (0.52-1.04) mg/dL Estimated GFR > 60.0 (>60) mL/min BUN/Creatinine Ratio 13.8 (6-22) Glucose 110 (80-110) mg/dL Calcium 9.3 (8.4-10.2) mg/dL Total Bilirubin 0.6 (0.2-1.3) mg/dL AST 19 (14-36) IU/L ALT 14 (<35) IU/L Alkaline Phosphatase 89 (38-126) U/L Total Creatine Kinase 65 (30-135) U/L CK-MB (CK-2) TNP CK-MB (CK-2) Rel Index TNP Troponin I 0.020 (0.01-0.034) ng/mL Total Protein 7.0 (6.3-8.2) g/dL Albumin 3.9 (3.5-5.0) g/dL Globulin 3.1 (1.7-4.1) g/dL Albumin/Globulin Ratio 1.3 (1.0-2.8) Amylase 62 (30-110) U/L Lipase 75 (23-300) U/L Procalcitonin (<0.5) ng/mL Urine RBC (0-5/HPF) Urine WBC (0-5/HPF) Ur Squamous Epith Cells (0-5/HPF) Urine Bacteria (None) Ur Culture Indicated? Micro UA Comment Point of care testing: Urine Dip Bedside Urine Glucose Negative Bedside Urine Bilirubin - Negative Bedside Urine Ketone - Negative Urine Specific [place] 1.010 Bedside Urine Occult Blood + Bedside Urine pH 7.0 Bedside Urine Protein - Negative Bedside Urine Urobilinogen - Negative Bedside Urine Nitrite - Negative Bedside Urine Leukocytes + 70 Esterase Discharge Plan Departure Patient Disposition: Home Clinical Impression: Acute UTI, Calculus, ureteral Discharge Date/Time: 10/11/19 22:35 Instructions: DI for Kidney Stones, DI for Urinary Tract Infection (UTI), DI for Abdominal Pain-Adult Activity Restrictions/Additional Instructions: Today we found a kidney stone. It is concerning that your also having a urinary tract infection or an infected kidney stone. I have included Dr. London's contact information. Please call their office tomorrow. I have given you prescriptions for the following medication: Tramadol for pain. You can take this every 6 hours as needed. Be aware this can be sedating and constipating. You can add Tylenol and Motrin to this. Tamulosin to help relax the ureters take this once a day Ondansetron for nausea. You can take this every 6 hours as needed. Bactrim is an antibiotic. Take this twice a day. I have also given you a take-home pack of [place]. You can use this for breakthrough pain. You can use half tab to 1 tab. Be aware that he should not have more than 4 g Tylenol in a day. Please come back to the emergency department for any acute concerns such as inability keep down fluids, etc Prescriptions: New tramadol 50 mg tablet 50 mg PO Q6H PRN (Reason: pain) Qty: 14 RF: 0 ondansetron 4 mg tablet,disintegrating 4 mg PO Q6H PRN (Reason: nausea and vomiting) Qty: 20 RF: 0 tamsulosin [Flomax] 0.4 mg capsule 0.4 mg PO DAILY Qty: 7 RF: 0 sulfamethoxazole-trimethoprim [Bactrim DS] 800-160 mg tablet 1 tab PO BID Qty: 14 RF: 0 No Action ropinirole [Requip] 0.25 mg tablet 0.5 mg PO HS Qty: 180 RF: 1 gabapentin 300 mg capsule 600 mg PO TID Qty: 540 RF: 2 citalopram [Celexa] 20 mg tablet 20 mg PO DAILY Qty: 90 RF: 3 furosemide 80 mg tablet 80 mg PO DAILY Qty: 90 RF: 3 rosuvastatin 40 mg tablet 40 mg PO DAILY Qty: 90 RF: 3 lisinopril 2.5 mg tablet 2.5 mg PO DAILY Qty: 90 RF: 3 fluticasone propionate [Flonase Allergy Relief] 50 mcg/actuation spray,suspension 2 spray NASAL BEDTIME RF: 0 levothyroxine 88 mcg tablet 88 mcg PO 4-6XD RF: 0 (DME) Resmed Aircurve BIPAP Qty: 1 RF: 0 Referrals: Mathew De La Torre MD [Primary Care Provider] - Breanne London MD [Physician] -
[2019-10-11 21:30] VITALS: BP 143/59; PULSE 86; RESP 13; O2SAT 93
[2019-10-11 22:00] VITALS: BP 156/62; PULSE 86; O2SAT 93
[2019-10-11] MEDS: TRAMADOL 50 MG PREPACK 1 BOTTLE MISC (22:08)
[2019-10-11] MEDS: ONDANSETRON 4 MG ODT PREPACK 1 BOTTLE MISC (22:08)
[2019-10-11] MEDS: TRIMETH/SULFA 160/800 (DS) TABLET 1 TAB PO (22:09)
[2019-10-11] MEDS: TRAMADOL 50 MG TABLET PO (22:09)
[2019-10-11] MEDS: ONDANSETRON 4 MG ODT SL (22:09)
[2019-10-11] MEDS: TAMSULOSIN 0.4 MG CAPSULE PO (22:09)
[2019-10-11] MEDS: HYDROCODONE/ACET 5/325 PREPACK 1 BOTTLE MISC (22:13)
== END 2019-10-11 22:35 | disposition home or self-care (01) ==
PROVIDERS: Emergency Provider Nurse Practitioner Family; PCP Family Medicine
DX: N39.0 Urinary tract infection, site not specified (principal); N20.1 Calculus of ureter; R79.89 Other specified abnormal findings of blood chemistry
CPT/HCPCS: 36415; 74177; 80053; 81003; 81015; 82150; 82550; 83690; 84145; 84484; 85025; 87077; 87086; 87186; 93005; 96361; 96374; 96375; 99284; 99285; J2270; J2405

== ENCOUNTER 2019-11-07 21:45 | Emergency (ER) | payer MEDICARE, OTHER, SELFPAY ==
[2019-11-07 22:11] VITALS: BP 158/61; PULSE 77; RESP 19; TEMP 39; O2SAT 98; BMI 31.8
--- NOTE | 2019-11-07 22:30 | ED.GENADULT ---
HPI - General Adult General Chief complaint: Abdominal Pain Stated complaint: kidney stones,no BM in 5 days,head ache, fever Time Seen by Provider: 11/07/19 22:05 Source: patient and family Mode of arrival: Family Vehicle Limitations: no limitations History of Present Illness HPI narrative: 69-year-old female who was seen in the emergency department approximately 1 month ago with left-sided pain. At that time she was diagnosed with a proximal left-sided 6 mm ureteral stone. Was sent home with [facility]. She has a follow-up with Urology in 48 hours from now. States over the past couple days she has had fevers, chills, headaches, malaise. She is still urinating. Still continue to have left-sided pain. She also states she has not had a bowel movement in the past several days. She has tried prunes and stool softeners without any improvement. She states that she felt poorly enough that she did not think she could make it until her appointment on Friday. Related Data Home Medications Medication Instructions Recorded Confirmed Resmed Aircurve BIPAP #1 ea 07/27/19 10/23/19 fluticasone propionate [Flonase 2 spray NASAL BEDTIME 09/24/19 10/23/19 Allergy Relief] levothyroxine 88 mcg PO 4-6XD 09/24/19 10/23/19 Previous Rx's Medication Instructions Recorded ropinirole 0.25 mg tablet 0.5 mg PO HS #180 tab 01/25/19 gabapentin 300 mg capsule 600 mg PO TID #540 cap 06/28/19 citalopram 20 mg tablet 20 mg PO DAILY #90 tab 10/04/19 furosemide 80 mg tablet 80 mg PO DAILY #90 tab 10/04/19 lisinopril 2.5 mg tablet 2.5 mg PO DAILY #90 tab 10/04/19 rosuvastatin 40 mg tablet 40 mg PO DAILY #90 tab 10/04/19 ondansetron 4 mg PO Q6H PRN #20 tab 10/11/19 sulfamethoxazole-trimethoprim 1 tab PO BID #14 tab 10/11/19 [Bactrim DS] tramadol 50 mg PO Q6H PRN #14 tab 10/11/19 tamsulosin 0.4 mg capsule 0.4 mg PO DAILY #14 cap 10/25/19 Allergies Allergy/AdvReac Type Severity Reaction Status Date / Time No Known Drug Allergies Allergy Verified 10/04/19 15:13 Review of Systems Constitutional Constitutional: Reports body ache(s), Reports chills, Reports fatigue, Reports fever(s), Reports headache(s), Reports lethargy and Reports malaise Eyes Eyes: Denies change in vision ENT Ears, Nose, Mouth, and Throat: Reports headache(s) and Denies sore throat Cardiovascular Cardiovascular: Denies chest pain, Denies palpitations and Denies dyspnea Respiratory Respiratory: Denies dyspnea Gastrointestinal Gastrointestinal: Reports constipation, Denies nausea and Denies vomiting Genitourinary Genitourinary: Reports dysuria and Denies vaginal discharge Musculoskeletal Musculoskeletal: Denies myalgias and Denies arthralgias Comments: Left-sided flank pain Integumentary/Breasts Skin/Breast: Denies lesions and Denies rash Neurologic Neurologic: Denies behavioral changes and Reports headache(s) Psychiatric Psychiatric: Denies behavioral changes Endocrine Endocrine: Reports fatigue and Denies palpitations Hematologic/Lymphatic Hematologic/Lymphatic: Denies easy bleeding and Denies easy bruising Allergic/Immunologic Allergic/Immunologic: Denies urticaria Patient History Medical History Acne (Resolved) Central sleep apnea (Chronic) Chicken pox (Resolved ~1951) Fatigue (Chronic) Heavy menstrual period (Resolved) Hepatitis A (Chronic ~1953) History of adenomatous polyp of colon (Inactive 06/17/11) Hypothyroidism (Chronic) Irregular menstrual cycle (Resolved) Measles (Resolved ~1951) Mumps (Resolved ~1951) Nocturnal hypoxemia (Chronic) Obesity (BMI 30-39.9) (Chronic) Obstructive sleep apnea of adult (Chronic) Osteoarthritis (Chronic ~2013) Painful menstrual periods (Resolved) Plantar warts (Chronic) Restless leg syndrome (Chronic) Whooping cough (Resolved ~1951) Surgical History Anesthesia (Resolved) History of bladder surgery (Resolved ~1994) Status post hysterectomy (~1984) Status post tubal ligation (~1975) Family History Brother Heart disease Child Age: 52 Diabetes mellitus Hypertension High cholesterol Father Diabetes mellitus Heart disease Grandmother Diabetes mellitus Hypertension Mother Hypertension Grandmother Heart disease Sister Diabetes mellitus Hypertension Social History Smoking Status: Current every day smoker Smoking Status: Current every day smoker tobacco type: cigarettes alcohol intake frequency: a few times a month Substance Use Type: does not use Exam Initial Vital Signs Initial Vital Signs: Vital Signs Temperature 102.2 F H 11/07/19 22:11 Pulse Rate 77 11/07/19 22:11 Respiratory Rate 19 11/07/19 22:11 Blood Pressure 158/61 H 11/07/19 22:11 Pulse Oximetry 98 11/07/19 22:11 Const General: cooperative, well developed and well groomed Orientation: alert, awake and oriented x3 HENMT Head: normal to inspection and normocephalic Resp Effort & Inspection: normal respiratory effort Auscultation: clear to auscultation bilaterally Cardio Rate: tachycardic Rhythm: regular rhythm GI Inspection: non-distended Palpation: soft and No firm Skin Lesions: no lesions Rashes: no rashes Neuro General: alert, awake and oriented x3 Cognition: normal cognition Speech: speech normal Extrem General: normal to inspection and capillary refill normal Psych Appearance: grossly normal and well kempt Course Orders Ordered: ED Orders 11/07/19 21:58 Urine Culture Stat Urine Microscopic Stat 11/07/19 22:34 CT kidney ureter bladder (KUB) Stat 11/07/19 22:46 Complete Blood Count AUTO DIFF Stat Comprehensive Metabolic Panel Stat Influenza A & B (PCR) Stat Lactate (Lactic Acid) Stat Lipase Stat Discontinued Medications Acetaminophen (Tylenol) 650 mg PO NOW ONE Stop: 11/07/19 22:32 Last Admin: 11/07/19 22:54 Dose: 650 mg Documented by: BELLA Ceftriaxone Sodium/Dextrose (Rocephin) 1 gm in 50 mls @ 100 mls/hr IV NOW ONE Stop: 11/08/19 00:27 Last Infusion: 11/08/19 00:49 Dose: 0 mls/hr Documented by: Admin: 11/08/19 00:14 Dose: 100 mls/hr Documented by: BELLA Magnesium Citrate (Magnesium Citrate) 300 ml PO NOW ONE Stop: 11/07/19 22:32 Last Admin: 11/07/19 22:54 Dose: 300 ml Documented by: BELLA Potassium Chloride (Potassium Chloride) 40 meq PO NOW ONE Stop: 11/07/19 23:12 Last Admin: 11/07/19 23:19 Dose: 40 meq Documented by: BELLA Vital Signs Vital signs: Vital Signs - 8 hr 11/07/19 22:11 11/07/19 22:54 11/07/19 23:09 Temperature 102.2 F H 102.2 F H Pulse Rate 77 110 H Respiratory Rate 19 Blood Pressure 158/61 H Blood Pressure [Left Arm] 149/75 H Pulse Oximetry 98 99 11/08/19 00:15 11/08/19 00:19 11/08/19 00:30 Temperature 99.2 F 99.2 F Pulse Rate 69 Respiratory Rate Blood Pressure Blood Pressure [Left Arm] 123/50 L Pulse Oximetry 96 11/08/19 01:00 11/08/19 02:20 Temperature 98.0 F Pulse Rate 62 Respiratory Rate 18 Blood Pressure Blood Pressure [Left Arm] 120/49 L 123/55 L Pulse Oximetry 95 98 Medical Decision Making Medical Records Medical records reviewed: Yes I reviewed the patient's medical records. Lab Data Lab results reviewed: Yes I reviewed the patient's lab results. Result diagrams: 11/07/19 22:46 11/07/19 22:46 Labs: Lab Results 11/07/19 11/07/19 11/07/19 Range/Units 21:58 22:46 22:46 WBC 15.1 H (4.5-11.0) X10^3/uL RBC 4.06 (4.0-5.2) X10^6/uL Hgb 12.6 (12.0-16.0) g/dL Hct 35.8 L (36-46) % MCV 88.0 (80-100) fL MCH 31.1 (26-34) PG MCHC 35.3 (30-36) % RDW 13.7 (11.6-14.8) % Plt Count 222 (150-400) X10^3/uL Neut % (Auto) 74.8 (50-75) % Lymph % (Auto) 11.8 L (25-40) % [place] % (Auto) 11.8 (3-14) % Eos % (Auto) 0.6 L (2-4) % Baso % (Auto) 1.0 (0-2) % Neut # (Auto) 28091 H (3141-4400) /uL Lymph # (Auto) 1800 (8368-1465) /uL [place] # (Auto) 1800 H (0-900) /uL Eos # (Auto) 100 (0-450) /uL Baso # (Auto) 100 (0-100) /uL Sodium 132 L (137-145) mmol/L Potassium 2.7 L* (3.4-5.1) mmol/L Chloride 94 L (98-107) mmol/L Carbon Dioxide 29 (22-32) mmol/L BUN 12 (7-17) mg/dL Creatinine 1.10 H (0.52-1.04) mg/dL Estimated GFR 49.0 L (>60) mL/min BUN/Creatinine Ratio 10.9 (6-22) Glucose 140 H (80-110) mg/dL Lactate (0.7-2.1) mmol/L Calcium 9.3 (8.4-10.2) mg/dL Total Bilirubin 0.7 (0.2-1.3) mg/dL AST 28 (14-36) IU/L ALT 20 (<35) IU/L Alkaline Phosphatase 80 (38-126) U/L Total Protein 7.5 (6.3-8.2) g/dL Albumin 3.8 (3.5-5.0) g/dL Globulin 3.7 (1.7-4.1) g/dL Albumin/Globulin Ratio 1.0 (1.0-2.8) Lipase 145 (23-300) U/L Urine RBC 1-5/hpf (0-5/HPF) Urine WBC 5-10/hpf H (0-5/HPF) Ur Squamous Epith Cells 0-1 /hpf (0-5/HPF) Urine Bacteria Many (>30) H (None) Ur Culture Indicated? Specimen cultured Influenza A (RT-PCR) (NEGATIVE) Influenza B (RT-PCR) (NEGATIVE) 11/07/19 11/07/19 Range/Units 22:46 22:46 WBC (4.5-11.0) X10^3/uL RBC (4.0-5.2) X10^6/uL Hgb (12.0-16.0) g/dL Hct (36-46) % MCV (80-100) fL MCH (26-34) PG MCHC (30-36) % RDW (11.6-14.8) % Plt Count (150-400) X10^3/uL Neut % (Auto) (50-75) % Lymph % (Auto) (25-40) % [place] % (Auto) (3-14) % Eos % (Auto) (2-4) % Baso % (Auto) (0-2) % Neut # (Auto) (1483-2053) /uL Lymph # (Auto) (4208-9926) /uL [place] # (Auto) (0-900) /uL Eos # (Auto) (0-450) /uL Baso # (Auto) (0-100) /uL Sodium (137-145) mmol/L Potassium (3.4-5.1) mmol/L Chloride (98-107) mmol/L Carbon Dioxide (22-32) mmol/L BUN (7-17) mg/dL Creatinine (0.52-1.04) mg/dL Estimated GFR (>60) mL/min BUN/Creatinine Ratio (6-22) Glucose (80-110) mg/dL Lactate 1.1 (0.7-2.1) mmol/L Calcium (8.4-10.2) mg/dL Total Bilirubin (0.2-1.3) mg/dL AST (14-36) IU/L ALT (<35) IU/L Alkaline Phosphatase (38-126) U/L Total Protein (6.3-8.2) g/dL Albumin (3.5-5.0) g/dL Globulin (1.7-4.1) g/dL Albumin/Globulin Ratio (1.0-2.8) Lipase (23-300) U/L Urine RBC (0-5/HPF) Urine WBC (0-5/HPF) Ur Squamous Epith Cells (0-5/HPF) Urine Bacteria (None) Ur Culture Indicated? Influenza A (RT-PCR) Flu a negative (NEGATIVE) Influenza B (RT-PCR) Flu b negative (NEGATIVE) Urine Dip Bedside Urine Glucose Negative Bedside Urine Bilirubin - Negative Bedside Urine Ketone - Negative Urine Specific [place] 1.015 Bedside Urine Occult Blood +++ Bedside Urine pH 6.0 Bedside Urine Protein ++ 100 Bedside Urine Urobilinogen +/- 1mg Bedside Urine Nitrite + Positive Bedside Urine Leukocytes +/- 15 Esterase Point of care testing: Urine Dip Bedside Urine Glucose Negative Bedside Urine Bilirubin - Negative Bedside Urine Ketone - Negative Urine Specific [place] 1.015 Bedside Urine Occult Blood +++ Bedside Urine pH 6.0 Bedside Urine Protein ++ 100 Bedside Urine Urobilinogen +/- 1mg Bedside Urine Nitrite + Positive Bedside Urine Leukocytes +/- [address] scan from 10/11/19: Radiologist's impression: [address] [address] [address] Scan Report Signed Patient: Madai Portillo LMR#: [id number] : 8Acct:[id number] Age/Sex: 69 / FDate of Service: 10/11/19 Loc: ED Accession Number: [id number] Procedure: CT abdomen pelvis w con Ordering Provider: Peggy Martines [employer]-BC PROCEDURE: CT ABDOMEN PELVIS W CON INDICATIONS: abd pain, llq, fever TECHNIQUE: After the administration of oral and intravenous contrast, 5 mm thick sections acquired from the diaphragms to the symphysis. 5 mm thick coronal and sagittal reformats were performed. For radiation dose reduction, the following was used: automated exposure control, adjustment of mA and/or kV according to patient size. COMPARISON: [facility], CT, ABDOMEN/PELVIS WITH CONTRAST, 02/15/2011, 10:19. FINDINGS: Image quality: Excellent. ABDOMEN: Lung bases: Dependent atelectasis in posterior aspect of bilateral lung bases are seen. Heart size is mildly enlarged, no pericardial effusion. Solid organs: Liver is normal in size and enhancement. Hepatic steatosis is seen. No discrete hepatic lesion. Gallbladder contains a calcified stone within its dependent portion. No gallbladder wall thickening or pericholecystic fluid.. Biliary system is non-dilated. Pancreas enhances normally. Spleen is normal in size and enhancement. No adrenal nodules. Right kidney is normal in size and enhancement, without hydronephrosis. There is moderate left-sided hydronephrosis and proximal hydroureter with moderate left perinephric fat stranding. 6 mm calcification is seen in proximal left ureter just below the level of left UVJ. Peritoneum and bowel: Stomach, small bowel, and colon loops are normal in caliber and wall thickness. No free fluid or air. Sigmoid diverticulosis is seen, no CT evidence of acute diverticulitis. Nodes and vessels: No retroperitoneal or mesenteric adenopathy. Aorta and inferior vena cava are normal in caliber. Miscellaneous: No ventral hernias. PELVIS: Genitourinary: Bladder wall thickness is normal. Miscellaneous: No inguinal hernias or adenopathy. Bones: No suspicious bony lesions. No vertebral body compression fractures. IMPRESSION: 1. 6 mm left proximal ureteral stone with moderate left-sided hydronephrosis and perinephric fat stranding. No right-sided renal stone or hydronephrosis. Normal appearing urinary bladder. 2. No bowel obstruction. No free fluid or free air. No evidence of acute appendicitis or diverticulitis. 3. Cholelithiasis, no evidence of acute cholecystitis. Hepatic steatosis. Dictated by: Richardson Paris M.D. on 10/11/2019 at 21:01 Approved by: Richardson Paris M.D. on 10/11/2019 at 21:10 CT scan - abdomen: Radiologist's impression: Obstructing 5 mm distal left ureteral stone just above the UVJ. Considerable left perinephric and periureteral stranding. Cholelithiasis without gallbladder distension MDM Narrative Medical decision making narrative: Patient was hypokalemic. Was given 40 of potassium p.o.. Urine is nitrite positive. Has bacteria and white cells. Creatinine also has a slight elevation from baseline. Given her fever and her presenting symptoms and the urinalysis this is concerning for urinary tract infection. Given the fact that she has a known 6 mm stone I repeated the CT scan which shows who was read today as a 5 mm stone at the distal ureter on the left with CT scan findings of pyelonephritis. This does fit her clinical presentation. She was given Rocephin. Patient is also complaining of constipation. She was given Mag citrate. I did discuss the case with Dr. Cifuentes with urology at [facility] who agreed that the patient needed urgent intervention. I discussed the case with Dr. Arredondo with Internal Medicine at [facility] who accepts the patient in transport. Discussed the diagnosis and the need for transfer with the patient and her family at bedside. They both expressed understanding and agreement. Discharge Plan Departure Patient Disposition: [facility] Clinical Impression: Acute pyelonephritis, Left nephrolithiasis, Hypokalemia Constipation Qualifiers: Constipation type: unspecified constipation type Qualified Code(s): K59.00 - Constipation, unspecified Prescriptions: No Action ropinirole [Requip] 0.25 mg tablet 0.5 mg PO HS Qty: 180 RF: 1 gabapentin 300 mg capsule 600 mg PO TID Qty: 540 RF: 2 tamsulosin [Flomax] 0.4 mg capsule 0.4 mg PO DAILY Qty: 14 RF: 1 citalopram [Celexa] 20 mg tablet 20 mg PO DAILY Qty: 90 RF: 3 furosemide 80 mg tablet 80 mg PO DAILY Qty: 90 RF: 3 rosuvastatin 40 mg tablet 40 mg PO DAILY Qty: 90 RF: 3 lisinopril 2.5 mg tablet 2.5 mg PO DAILY Qty: 90 RF: 3 fluticasone propionate [Flonase Allergy Relief] 50 mcg/actuation spray,suspension 2 spray NASAL BEDTIME RF: 0 levothyroxine 88 mcg tablet 88 mcg PO 4-6XD RF: 0 tramadol 50 mg tablet 50 mg PO Q6H PRN (Reason: pain) Qty: 14 RF: 0 ondansetron 4 mg tablet,disintegrating 4 mg PO Q6H PRN (Reason: nausea and vomiting) Qty: 20 RF: 0 sulfamethoxazole-trimethoprim [Bactrim DS] 800-160 mg tablet 1 tab PO BID Qty: 14 RF: 0 (DME) Resmed Aircurve BIPAP Qty: 1 RF: 0 Referrals: Mathew De La Torre MD [Primary Care Provider] -
--- NOTE | 2019-11-07 22:34 | DI.CT.S_ITS ---
PROCEDURE: CT KIDNEY URETER BLADDER (KUB) INDICATIONS: Eval for location of known 6 mm ureteral stone TECHNIQUE: Noncontrast 5 mm thick sections acquired from the diaphragms to the symphysis. 5 mm thick coronal and sagittal reformats were then performed. For radiation dose reduction, the following was used: automated exposure control, adjustment of mA and/or kV according to patient size. COMPARISON: None. FINDINGS: Image quality: Excellent. Lung bases: Lung bases are clear. Heart size is normal. Urinary system: Right kidney: No stone or hydronephrosis. Perinephric stranding, may be chronic. Right ureter: Unremarkable. Left kidney: Moderate hydronephrosis. No renal stone. Left ureter: Moderately dilated diffusely. Thickened wall. Obstructing distal ureteral 5 mm stone just above the ureterovesical junction. Bladder: Minimal wall thickening. No bladder stone. Other solid organs: Liver is normal in size. Hepatic steatosis. Gallbladder contains a large calcified stone. No gallbladder wall thickening.. Pancreas is normal in contours. Spleen is normal in size. Calcified splenic granulomata. No adrenal nodules. Peritoneum and bowel: Unenhanced bowel loops demonstrate normal wall thickness and caliber. No free fluid or air. Sigmoid diverticulosis without evidence of diverticulitis.4 Nodes and vessels: No retroperitoneal or mesenteric adenopathy by size criteria. Aorta and inferior vena cava are normal in caliber. Abdominal wall: No ventral hernias. Pelvis: No free pelvic fluid. No inguinal hernias or adenopathy. Bones: No suspicious bony lesions. No vertebral body compression fractures. IMPRESSION: 1. A 5 mm stone obstructs the distal left ureter resulting in moderate left hydronephrosis. 2. Cholelithiasis. 3. Hepatic steatosis. 4. Sigmoid diverticulosis. Comment: Final report is concordant with preliminary interpretation provided by [facility]. Dictated by: Christiano Guy M.D. on 11/08/2019 at 7:48 Approved by: Christiano Guy M.D. on 11/08/2019 at 7:54
[2019-11-07 22:54] VITALS: TEMP 39
[2019-11-07 22:54] LABS: Add Manual Diff / Slide Review NO; Basophils Absolute Auto 100 /uL (0-100); Eosinophils Absolute Auto 100 /uL (0-450); Eosinophils Percent Auto 0.6 % (2-4); Hematocrit 35.8 % (36-46); Hemoglobin 12.6 g/dL (12.0-16.0); Lymphocytes Absolute Auto 1800 /uL (1100-4500); Lymphocytes Percent Auto 11.8 % (25-40); Mean Corpuscular HGB Conc 35.3 % (30-36); Mean Corpuscular Hemoglobin 31.1 PG (26-34); Monocytes Absolute Auto 1800 /uL (0-900); Monocytes Percent Auto 11.8 % (3-14); Neutrophils Absolute Auto 11300 /uL (1500-7000); Neutrophils Percent Auto 74.8 % (50-75); Platelet Count 222 X10^3/uL (150-400); Red Blood Cell Count 4.06 X10^6/uL (4.0-5.2); Red Cell Distribution Width 13.7 % (11.6-14.8); White Blood Cell Count 15.1 X10^3/uL (4.5-11.0)
[2019-11-07] MEDS: ACETAMINOPHEN 325 MG TABLET 650 MG PO (22:54)
[2019-11-07] MEDS: MAGNESIUM CITRATE 300 ML SOLUTION PO (22:54)
[2019-11-07 22:59] LABS: RBC Urine 1-5/HPF (0-5/HPF); WBC Urine 5-10/HPF (0-5/HPF)
[2019-11-07 23:00] LABS: Bacteria Urine Many (>30); Culture Indicated Urine Specimen Cultured; Squamous Epithelial Cell Urine 0-1 /HPF (0-5/HPF)
[2019-11-07 23:04] LABS: Lactate (Lactic Acid) 1.1 mmol/L (0.7-2.1)
[2019-11-07 23:05] LABS: Alanine Aminotransferase 20 IU/L (<35); Albumin 3.8 g/dL (3.5-5.0); Alkaline Phosphatase 80 U/L (38-126); Aspartate Aminotransferase 28 IU/L (14-36); BUN Creatinine Ratio 10.9 (6-22); Bilirubin Total 0.7 mg/dL (0.2-1.3); Blood Urea Nitrogen 12 mg/dL (7-17); Calcium 9.3 mg/dL (8.4-10.2); Carbon Dioxide 29 mmol/L (22-32); Chloride 94 mmol/L (98-107); Globulin 3.7 g/dL (1.7-4.1); Glucose 140 mg/dL (80-110); HEMOLYSIS 40 (0-50); Lipase 145 U/L (23-300); Sodium 132 mmol/L (137-145); Total Protein 7.5 g/dL (6.3-8.2)
[2019-11-07 23:08] LABS: Potassium 2.7 mmol/L (3.4-5.1)
[2019-11-07 23:09] VITALS: BP 149/75; PULSE 110; O2SAT 99
[2019-11-07] MEDS: POTASSIUM CHLORIDE 20 MEQ/15 ML UDC 40 MEQ PO (23:19)
[2019-11-07 23:23] LABS: Influenza A - CEPHEID Flu A NEGATIVE (NEGATIVE); Influenza B - CEPHEID Flu B NEGATIVE (NEGATIVE)
[2019-11-08] MEDS: CEFTRIAXONE 1 GM/50 ML FROZ.PIGGY IV (00:14)
[2019-11-08 00:15] VITALS: TEMP 37.3
[2019-11-08 00:19] VITALS: TEMP 37.3
[2019-11-08 00:30] VITALS: BP 123/50; PULSE 69; O2SAT 96
[2019-11-08 01:00] VITALS: BP 120/49; O2SAT 95
[2019-11-08 02:20] VITALS: BP 123/55; PULSE 62; RESP 18; TEMP 36.7; O2SAT 98
[2019-11-08 03:00] VITALS: BP 107/42; PULSE 50; O2SAT 95
== END 2019-11-08 03:40 | disposition short-term general hospital (02) ==
PROVIDERS: Emergency Provider Emergency Medicine; PCP Family Medicine
DX: N13.6 Pyonephrosis (principal); E87.6 Hypokalemia; K59.00 Constipation, unspecified; R51 Headache
CPT/HCPCS: 36415; 74176; 80053; 81003; 81015; 83605; 83690; 85025; 87077; 87086; 87186; 87502; 96365; 99284

== ENCOUNTER → 2019-12-03 14:17 | Outpatient (CLI) | payer MEDICARE, OTHER, SELFPAY ==
--- NOTE | 2019-12-03 | DI.US.S_ITS ---
PROCEDURE: US RENAL COMPLETE INDICATIONS: CALCULUS OF KIDNEY TECHNIQUE: Real-time scanning was performed of the kidneys and bladder, with image documentation. COMPARISON: [facility], CT, CT KIDNEY URETER BLADDER (KUB), 11/07/2019, 22:54. FINDINGS: Kidneys: Kidneys are normal in size. Right kidney measures 11.4 cm long; left kidney measures 13.1 cm long. Right renal cortical thickness is 1.0 cm; left renal cortical thickness is 1.6 cm. Renal cortical echotexture is normal. No hydronephrosis or nephrolithiasis. No suspicious solid mass lesions. Bladder: Pre-void bladder volume is 432 mL. Post-void residual is 34 mL. Pre-void images demonstrate no intraluminal masses or stones. On pre-void images, bilateral ureteral jets are noted with color Doppler interrogation. (Of note, ureteral jets may not be detectable in up to 25% of cases due to insufficient differences in specific gravity between ureteral and bladder urine). Miscellaneous: No free pelvic fluid. IMPRESSION: No visible renal stones. Dictated by: Louie TORRES Interpreted: gAnes Girard MD on 12/03/2019 at 16:28 Approved by: Agnes Girard M.D. on 12/03/2019 at 17:36
== END ==
PROVIDERS: PCP Family Medicine; Visit Provider Urology
DX: N20.0 Calculus of kidney (principal)
CPT/HCPCS: 76770

== ENCOUNTER → 2020-01-10 09:40 | Outpatient (CLI) | payer MEDICARE, OTHER, SELFPAY ==
[2020-01-10 10:31] LABS: BUN Creatinine Ratio 12.5 (6-22); Blood Urea Nitrogen 10 mg/dL (7-17); Calcium 10.2 mg/dL (8.4-10.2); Carbon Dioxide 29 mmol/L (22-32); Chloride 105 mmol/L (98-107); Estimated Glomerular Filt Rate > 60.0 mL/min (>60); Glucose 147 mg/dL (80-110); HEMOLYSIS < 15 (0-50); Sodium 141 mmol/L (137-145)
== END ==
PROVIDERS: PCP Family Medicine; Referring Provider Family Medicine; Visit Provider Family Medicine
DX: E87.6 Hypokalemia (principal)
CPT/HCPCS: 36415; 80048

== ENCOUNTER → 2020-01-13 13:42 | Outpatient (CLI) | payer MEDICARE, OTHER, SELFPAY ==
--- NOTE | 2020-01-13 | DI.ECHO.S_ITS ---
[facility]---------+ [facility] +---------+ : : [address] [address] : : : : [id number] : : : : Phone: [phone] Echocardiogram Report + + :Name: KASANDRA WILKINSON Study Date: 01/13/2020 Height: 63 in : :[facility] Weight: 190 lb : : Gender: Female BSA: 1.9 m2 : :: 1950 Age: 70 yrs BP: 142/86 mmHg: :Reason For Study: ISCHEMIC CARDIOMYOPATHY : :Ordering Physician: Tiarra Robles : :Lina Performed By: Fariha Hughes : :Referring: TIARRA MILLS : + + Interpretation Summary 1) Normal left ventricular size with normal systolic function (EF 55-60%). 2) There are no obvious focal wall motion abnormalities noted but poor endocardial definition reduces the sensitivity for the detection of such. 3) Normal right ventricular size and function. 4) There is mild to moderate aortic regurgitation. 5) Hypertension present during the study (BP 142/86mmHg). 6) Compared to the Echo done 09/25/2019, LVEF has improved from 45-50% to 55- 60% on this study. Procedure: A two-dimensional transthoracic echocardiogram with color flow and Doppler was performed. The study quality was technically adequate. Comparison is made with the echocardiogram of 09/25/2019. The patient was in sinus bradycardia with heart rates between 47-54 bpm during the exam. Left Ventricle: The left ventricle is normal in size. Left ventricular wall thickness is mildly increased. The ejection fraction is estimated to be 55- 60%. Left ventricular systolic function is normal. There are no obvious focal wall motion abnormalities noted but poor endocardial definition reduces the sensitivity for the detection of such. Diastolic function could not be accurately assessed due to contradictory data. Right Ventricle: The right ventricle is normal in size and function. Atria: Both atria are normal in size. There is no Doppler evidence for an interatrial shunt. Mitral Valve: The mitral valve is normal in structure and function. There is mild mitral regurgitation. Aortic Valve: There is mild aortic valve sclerosis. The aortic valve is trileaflet. The aortic valve opens well. There is no aortic valve stenosis. There is mild to moderate aortic regurgitation. Tricuspid Valve: The tricuspid valve is normal in structure and function. There is mild tricuspid regurgitation. The right ventricular systolic pressure is estimated to be at least 20 mmHg based on an estimated right atrial pressure of 3 mm Hg. Pulmonic Valve: The pulmonic valve is not well seen, but is grossly normal. There is trace pulmonic regurgitation. Great Vessels: The aortic root is normal size. The ascending aorta is at the upper limits of normal in size. The IVC is of normal diameter and collapses greater than 50% with a sniff. This suggests a low right atrial pressure of 3 mm Hg. Pericardium/ Pleura There is no pericardial effusion. There is no pleural effusion. MMode/2D Measurements & Calculations LVIDd: 5.0 cm LVOT diam: 2.1 cm LVIDs: 3.3 cm Ao root diam: 2.6 cm FS: 35.0 % asc Aorta Diam: 3.8 cm EPSS: 1.4 cm Ao Arch Diam (Prox Trans): 2.2 cm IVSd: 1.1 cm LVPWd: 1.1 cm LV aranda. diameter/BSA (cm/m^2): 2.7 LV sys. diameter/BSA (cm/m^2): 1.7 LA A2 area: 17.9 cm2 RA long axis: 4.1 cm LA A4 area: 13.6 cm2 RA area: 13.1 cm2 LA length (vol): 4.5 cm RA vol: 36.0 ml LA vol: 46.2 ml RA : 19.0 ml/m2 LA vol index: 24.4 ml/m2 IVC diam: 1.6 cm RVD1 (basal): 3.0 cm TAPSE: 2.2 cm Doppler Measurements & Calculations Ao V2 max: 136.3 cm/sec LVOT Max Mayo: 99.0 cm/sec Ao V2 mean: 96.1 cm/sec LV V1 max P.9 mmHg Ao max P.4 mmHg LV V1 VTI: 24.2 cm Ao mean P.1 mmHg ANGIE(I,D): 2.6 cm2 Ao V2 VTI: 33.3 cm ANGIE(V,D): 2.6 cm2 sev ratio: 0.73 ANGIE indexed to BSA (cm^2/m^2): 1.4 AI P1/2t: 674.1 msec AI dec slope: 175.9 cm/sec2 MV E max mayo: 64.8 cm/sec TR max mayo: 205.2 cm/sec MV A max mayo: 101.3 cm/sec TR max P.9 mmHg MV E/A: 0.64 PA V2 max: 82.8 cm/sec Med Peak E' Mayo: 3.9 cm/sec PA V2 mean: 57.9 cm/sec E/E' med: 16.6 PA mean P.5 mmHg Lat Peak E' Mayo: 5.4 cm/sec PA pr(Accel): 8.9 mmHg E/E' lat: 12.1 PA Accel Time: 0.14 sec E/e' average: 14.3 MV dec time: 0.26 sec MV P1/2t: 75.7 msec MV P1/2t max mayo: 64.6 cm/sec SV(LVOT): 87.4 ml MVA(P1/2t): 2.9 cm2 Reading Physician:03:20 PM
== END ==
PROVIDERS: PCP Family Medicine; Referring Provider Family Medicine; Visit Provider Internal Medicine Cardiovascular Disease
DX: I08.3 Combined rheumatic disorders of mitral, aortic and tricuspid valves (principal); I25.5 Ischemic cardiomyopathy
CPT/HCPCS: 93306

== ENCOUNTER → 2020-01-14 08:07 | Outpatient (CLI) | payer MEDICARE, OTHER, SELFPAY ==
[2020-01-14 08:35] LABS: Add Manual Diff / Slide Review NO; Basophils Absolute Auto 100 /uL (0-100); Basophils Percent Auto 0.8 % (0-2); Eosinophils Absolute Auto 200 /uL (0-450); Eosinophils Percent Auto 1.8 % (2-4); Hematocrit 42.5 % (36-46); Hemoglobin 14.6 g/dL (12.0-16.0); Lymphocytes Absolute Auto 2700 /uL (1100-4500); Lymphocytes Percent Auto 25.2 % (25-40); Mean Corpuscular HGB Conc 34.2 % (30-36); Mean Corpuscular Hemoglobin 30.7 PG (26-34); Mean Corpuscular Volume 89.7 fL (80-100); Monocytes Absolute Auto 800 /uL (0-900); Monocytes Percent Auto 7.5 % (3-14); Neutrophils Absolute Auto 6900 /uL (1500-7000); Neutrophils Percent Auto 64.7 % (50-75); Platelet Count 144 X10^3/uL (150-400); Red Blood Cell Count 4.74 X10^6/uL (4.0-5.2); Red Cell Distribution Width 14.7 % (11.6-14.8); White Blood Cell Count 10.7 X10^3/uL (4.5-11.0)
[2020-01-14 08:49] LABS: BUN Creatinine Ratio 17.1 (6-22); Blood Urea Nitrogen 12 mg/dL (7-17); Calcium 9.9 mg/dL (8.4-10.2); Carbon Dioxide 26 mmol/L (22-32); Chloride 106 mmol/L (98-107); Cholesterol 140 mg/dL (140-199); Estimated Glomerular Filt Rate > 60.0 mL/min (>60); Glucose 153 mg/dL (80-110); HDL Cholesterol 39 mg/dL (40-60); HEMOLYSIS < 15 (0-50); LDL Cholesterol Calculated 59 mg/dL (<100); Potassium 4.4 mmol/L (3.4-5.1); Sodium 139 mmol/L (137-145); Triglycerides 212 mg/dL (35-150)
== END ==
PROVIDERS: PCP Family Medicine; Referring Provider Internal Medicine Cardiovascular Disease; Visit Provider Internal Medicine Cardiovascular Disease
DX: I25.10 Atherosclerotic heart disease of native coronary artery without angina pectoris (principal)
CPT/HCPCS: 36415; 80048; 80061; 85025

== ENCOUNTER → 2020-01-22 18:40 | Outpatient (CLI) | payer MEDICARE, OTHER, SELFPAY | PROVIDERS: PCP Family Medicine; Visit Provider Physician Assistant | DX: L97.529 Non-pressure chronic ulcer of other part of left foot with unspecified severity (principal) | CPT/HCPCS: 87070; 87075; 87205 ==

== ENCOUNTER → 2020-01-28 08:29 | Outpatient (CLI) | payer MEDICARE, OTHER, SELFPAY ==
[2020-01-28 09:26] LABS: Add Manual Diff / Slide Review NO; Basophils Absolute Auto 100 /uL (0-100); Basophils Percent Auto 0.8 % (0-2); Eosinophils Absolute Auto 200 /uL (0-450); Eosinophils Percent Auto 1.8 % (2-4); Hematocrit 43.1 % (36-46); Hemoglobin 14.7 g/dL (12.0-16.0); Lymphocytes Absolute Auto 2800 /uL (1100-4500); Lymphocytes Percent Auto 26.7 % (25-40); Mean Corpuscular HGB Conc 34.1 % (30-36); Mean Corpuscular Hemoglobin 30.5 PG (26-34); Mean Corpuscular Volume 89.5 fL (80-100); Monocytes Absolute Auto 800 /uL (0-900); Monocytes Percent Auto 7.9 % (3-14); Neutrophils Absolute Auto 6700 /uL (1500-7000); Neutrophils Percent Auto 62.8 % (50-75); Platelet Count 162 X10^3/uL (150-400); Red Blood Cell Count 4.81 X10^6/uL (4.0-5.2); Red Cell Distribution Width 14.8 % (11.6-14.8); White Blood Cell Count 10.6 X10^3/uL (4.5-11.0)
[2020-01-28 09:27] LABS: Hemoglobin A1C% w Est Avg Glu 6.9 % (4.0-6.0)
[2020-01-28 09:33] LABS: Alanine Aminotransferase 15 IU/L (<35); Albumin 4.3 g/dL (3.5-5.0); Albumin Globulin Ratio 1.2 (1.0-2.8); Alkaline Phosphatase 102 U/L (38-126); Aspartate Aminotransferase 21 IU/L (14-36); Bilirubin Total 0.5 mg/dL (0.2-1.3); Blood Urea Nitrogen 17 mg/dL (7-17); Carbon Dioxide 27 mmol/L (22-32); Chloride 106 mmol/L (98-107); Cholesterol 130 mg/dL (140-199); Estimated Glomerular Filt Rate 54.5 mL/min (>60); Globulin 3.7 g/dL (1.7-4.1); Glucose 155 mg/dL (80-110); HDL Cholesterol 34 mg/dL (40-60); HEMOLYSIS < 15 (0-50); LDL Cholesterol Calculated 63 mg/dL (<100); Potassium 4.8 mmol/L (3.4-5.1); Sodium 140 mmol/L (137-145); Triglycerides 167 mg/dL (35-150)
[2020-01-28 10:01] LABS: Thyroid Stimulating Hormone 1.86 uIU/mL (0.47-4.68)
== END ==
PROVIDERS: PCP Family Medicine; Referring Provider Family Medicine; Visit Provider Family Medicine
DX: R73.9 Hyperglycemia, unspecified (principal); I21.4 Non-ST elevation (NSTEMI) myocardial infarction; E03.9 Hypothyroidism, unspecified
CPT/HCPCS: 36415; 80053; 80061; 83036; 84443; 85025

== ENCOUNTER → 2020-02-01 14:16 | Outpatient (CLI) | payer MEDICARE, OTHER, SELFPAY | PROVIDERS: PCP Family Medicine; Referring Provider Family Medicine; Visit Provider Family Medicine | DX: G60.9 Hereditary and idiopathic neuropathy, unspecified (principal); L97.521 Non-pressure chronic ulcer of other part of left foot limited to breakdown of skin; Z72.0 Tobacco use; I25.2 Old myocardial infarction; L03.032 Cellulitis of left toe | CPT/HCPCS: 11042; 87070; 87075; 87205; 99203; 99214 ==

== ENCOUNTER → 2020-02-08 08:53 | Outpatient (CLI) | payer MEDICARE, OTHER, SELFPAY | PROVIDERS: PCP Family Medicine; Referring Provider Family Medicine; Visit Provider Family Medicine | DX: E11.621 Type 2 diabetes mellitus with foot ulcer (principal); L97.521 Non-pressure chronic ulcer of other part of left foot limited to breakdown of skin | CPT/HCPCS: 97597 ==

== ENCOUNTER → 2020-02-28 08:19 | Outpatient (CLI) | payer MEDICARE, OTHER, SELFPAY | PROVIDERS: PCP Family Medicine; Referring Provider Family Medicine; Visit Provider Family Medicine | DX: R73.9 Hyperglycemia, unspecified (principal) | CPT/HCPCS: 36415; 83036 ==

== ENCOUNTER → 2020-02-28 09:23 | Outpatient (CLI) | payer MEDICARE, OTHER, SELFPAY | PROVIDERS: PCP Family Medicine; Referring Provider Family Medicine; Visit Provider Family Medicine | DX: E11.621 Type 2 diabetes mellitus with foot ulcer (principal); L97.521 Non-pressure chronic ulcer of other part of left foot limited to breakdown of skin; E11.40 Type 2 diabetes mellitus with diabetic neuropathy, unspecified; Z72.0 Tobacco use | CPT/HCPCS: 11042 ==

== ENCOUNTER → 2020-03-20 09:23 | Outpatient (CLI) | payer MEDICARE, OTHER, SELFPAY ==
[2020-03-20 10:17] LABS: Hemoglobin A1C% w Est Avg Glu 6.8 % (4.0-6.0)
[2020-03-20 10:31] LABS: Blood Urea Nitrogen 23 mg/dL (7-17); Calcium 10.2 mg/dL (8.4-10.2); Carbon Dioxide 27 mmol/L (22-32); Chloride 104 mmol/L (98-107); Glucose 129 mg/dL (80-110); HEMOLYSIS < 15 (0-50); Potassium 4.8 mmol/L (3.4-5.1); Sodium 140 mmol/L (137-145)
== END ==
PROVIDERS: PCP Family Medicine; Referring Provider Family Medicine; Visit Provider Family Medicine
DX: E11.9 Type 2 diabetes mellitus without complications (principal)
CPT/HCPCS: 36415; 80048; 83036

== ENCOUNTER → 2020-03-20 09:52 | Outpatient (CLI) | payer MEDICARE, OTHER, SELFPAY | PROVIDERS: PCP Family Medicine; Referring Provider Family Medicine; Visit Provider Family Medicine | DX: E11.621 Type 2 diabetes mellitus with foot ulcer (principal); L97.521 Non-pressure chronic ulcer of other part of left foot limited to breakdown of skin | CPT/HCPCS: 36415; 80048; 83036; 97597 ==

== ENCOUNTER → 2020-04-06 09:49 | Outpatient (CLI) | payer MEDICARE, OTHER, SELFPAY | PROVIDERS: PCP Family Medicine; Referring Provider Family Medicine; Visit Provider Family Medicine | DX: E11.621 Type 2 diabetes mellitus with foot ulcer (principal); E11.43 Type 2 diabetes mellitus with diabetic autonomic (poly)neuropathy | CPT/HCPCS: 99212; 99213 ==

== ENCOUNTER → 2020-04-28 15:39 | Outpatient (CLI) | payer MEDICARE, OTHER, SELFPAY ==
[2020-04-29 09:18] LABS: COVID19 Sendout Not Detected (Not Detect)
== END ==
PROVIDERS: PCP Family Medicine; Visit Provider Physician Assistant
DX: Z01.812 Encounter for preprocedural laboratory examination (principal)
CPT/HCPCS: 87635

== ENCOUNTER → 2020-05-01 10:37 | Outpatient (CLI) | payer MEDICARE, OTHER, SELFPAY ==
[2020-05-01 12:00] LABS: Add Manual Diff / Slide Review NO; Basophils Absolute Auto 100 /uL (0-100); Basophils Percent Auto 0.8 % (0-2); Eosinophils Absolute Auto 200 /uL (0-450); Eosinophils Percent Auto 1.8 % (2-4); Hematocrit 40.5 % (36-46); Hemoglobin 13.7 g/dL (12.0-16.0); Lymphocytes Absolute Auto 2600 /uL (1100-4500); Lymphocytes Percent Auto 27.6 % (25-40); Mean Corpuscular HGB Conc 33.9 % (30-36); Mean Corpuscular Hemoglobin 30.9 PG (26-34); Mean Corpuscular Volume 91.2 fL (80-100); Monocytes Absolute Auto 700 /uL (0-900); Monocytes Percent Auto 7.5 % (3-14); Neutrophils Absolute Auto 5900 /uL (1500-7000); Neutrophils Percent Auto 62.3 % (50-75); Platelet Count 140 X10^3/uL (150-400); Red Blood Cell Count 4.44 X10^6/uL (4.0-5.2); Red Cell Distribution Width 14.8 % (11.6-14.8); White Blood Cell Count 9.5 X10^3/uL (4.5-11.0)
[2020-05-01 12:16] LABS: Hemoglobin A1C% w Est Avg Glu 6.6 % (4.0-6.0)
[2020-05-01 12:47] LABS: Alanine Aminotransferase 25 IU/L (<35); Albumin 4.3 g/dL (3.5-5.0); Albumin Globulin Ratio 1.4 (1.0-2.8); Alkaline Phosphatase 101 U/L (38-126); Aspartate Aminotransferase 26 IU/L (14-36); BUN Creatinine Ratio 13.1 (6-22); Bilirubin Total 0.6 mg/dL (0.2-1.3); Blood Urea Nitrogen 17 mg/dL (7-17); Calcium 9.9 mg/dL (8.4-10.2); Carbon Dioxide 25 mmol/L (22-32); Chloride 101 mmol/L (98-107); Estimated Glomerular Filt Rate 40.3 mL/min (>60); Globulin 3.1 g/dL (1.7-4.1); Glucose 94 mg/dL (80-110); HEMOLYSIS < 15 (0-50); Magnesium 2.3 mg/dL (1.6-2.3); Potassium 4.5 mmol/L (3.4-5.1); Sodium 136 mmol/L (137-145); Total Protein 7.4 g/dL (6.3-8.2)
[2020-05-01 13:17] LABS: Thyroid Stimulating Hormone 1.99 uIU/mL (0.47-4.68)
== END ==
PROVIDERS: PCP Family Medicine; Referring Provider Family Medicine; Visit Provider Family Medicine
DX: R73.9 Hyperglycemia, unspecified (principal)
CPT/HCPCS: 36415; 80053; 83036; 83735; 84443; 85025

== ENCOUNTER 2020-06-01 08:30 | Outpatient (RCR) | payer MEDICARE, OTHER, SELFPAY | END 2020-07-13 07:36 | LOC: CAR 08:30 | PROVIDERS: PCP Family Medicine; Visit Provider Family Medicine | DX: I21.3 ST elevation (STEMI) myocardial infarction of unspecified site (principal) | CPT/HCPCS: 93798 ==

== ENCOUNTER 2020-06-21 18:18 | Emergency (ER) | payer MEDICARE, OTHER, SELFPAY ==
[2020-06-21 18:35] VITALS: BP 143/65; PULSE 63; RESP 16; TEMP 36.4; O2SAT 97; BMI 31.8
--- NOTE | 2020-06-21 18:37 | DI.RAD.S_ITS ---
PROCEDURE: XR FOOT LT MIN 3V INDICATIONS: fall TECHNIQUE: 3 views of the foot were acquired. COMPARISON: None. FINDINGS: Bones: No fractures or subluxation. There is a small ovoid lucency within the medial cuneiform along the navicular-cuneiform articulation compatible with a degenerative subchondral cyst. There are small posterior and plantar calcaneal enthesophytes. Soft tissues: There is a suspected small tibiotalar joint effusion. Achilles tendon appears intact. IMPRESSION: 1. No fracture or subluxation. Dictated by: Luigi Mccullough M.D. on 06/21/2020 at 18:51 Approved by: Luigi Mccullough M.D. on 06/21/2020 at 18:52
[2020-06-21] MEDS: ACETAMINOPHEN 325 MG TABLET 650 MG PO (20:03)
[2020-06-21 20:13] VITALS: BP 135/67; PULSE 76; RESP 16
--- NOTE | 2020-06-21 23:05 | ED_ITS ---
HPI - Extremity Injury (Lower) <DARIUS Fagan - Last Filed: 06/21/20 23:18> General Chief Complaint: Extremity Injury, Lower Stated Complaint: fall yesterday, L foot bruised and pain Time Seen by Provider: 06/21/20 18:37 Source: patient Mode of arrival: Ambulatory Limitations: no limitations History of Present Illness HPI Narrative: This is a 70 year female, nonsmoker, who presents to ED with her daughter with chief complain of left 4th and little toe after she walked into a a sliding door yesterday. Patient takes Plavix after she had cardiac stent [place] done from [place]. Patient reports she was able to bear weight and has been ambulating by using her old ortho shoe. Denies pain in her ankle. Patient presents today since the swelling and bruise on dorsal aspect of metatarsal and 4th and the little toe is getting worse. Patient reports intact sensation, able to move her toes. She has been using ice pack twice yesterday. She has not taken any medications for pain. Related Data Home Medications Medication Instructions Recorded Confirmed fluticasone propionate [Flonase 2 spray NASAL BEDTIME 09/24/19 05/04/20 Allergy Relief] spironolactone 25 mg tablet 25 mg PO DAILY 12/10/19 05/04/20 carvedilol 3.125 mg tablet 3.125 mg PO BID 01/25/20 05/04/20 clopidogrel 75 mg tablet 75 mg PO DAILY 01/25/20 05/04/20 Previous Rx's Medication Instructions Recorded citalopram 20 mg tablet 20 mg PO DAILY #90 tab 10/04/19 furosemide 80 mg tablet 80 mg PO DAILY #90 tab 10/04/19 lisinopril 2.5 mg tablet 2.5 mg PO DAILY #90 tab 10/04/19 rosuvastatin 40 mg tablet 40 mg PO DAILY #90 tab 10/04/19 mupirocin 2 % topical ointment 1 applic TOP BID #30 gram 01/22/20 levothyroxine 88 mcg tablet 88 mcg PO DAILY #90 tab 02/15/20 metformin 500 mg tablet 500 mg PO BID #180 tab 02/28/20 bupropion HCl 150 mg tablet,12 hr 150 mg PO QAM #175 each 04/26/20 sustained-release ropinirole 0.25 mg tablet 0.5 mg PO HS #180 tab 04/28/20 gabapentin 300 mg capsule 600 mg PO TID #540 cap 05/22/20 Allergies Allergy/AdvReac Type Severity Reaction Status Date / Time No Known Drug Allergies Allergy Verified 05/04/20 15:07 Review of Systems <DARIUS Fagan - Last Filed: 06/21/20 23:18> Review of Systems Narrative: General: Denies fever, chills, fatigue, malaise, sweats. Musculoskeletal: See HPI Skin: See HPI Neurologic: Denies weakness, headache, numbness, change in speech, confusion, seizures, incoordination. Psychiatric: No concerning psychosocial issues. 12-point review of systems is negative except for those stated above. Patient History <DARIUS Fagan - Last Filed: 06/21/20 23:18> Medical History Acne (Resolved) Central sleep apnea (Chronic) Chicken pox (Resolved ~1951) Fatigue (Chronic) Heavy menstrual period (Resolved) Hepatitis A (Chronic ~1953) History of adenomatous polyp of colon (Inactive 06/17/11) Hypothyroidism (Chronic) Irregular menstrual cycle (Resolved) Measles (Resolved ~1951) Mumps (Resolved ~1951) Nocturnal hypoxemia (Chronic) Obesity (BMI 30-39.9) (Chronic) Obstructive sleep apnea of adult (Chronic) Osteoarthritis (Chronic ~2013) Painful menstrual periods (Resolved) Plantar warts (Chronic) Restless leg syndrome (Chronic) Whooping cough (Resolved ~1951) Surgical History Anesthesia (Resolved) History of bladder surgery (Resolved ~1994) Status post hysterectomy (~1984) Status post tubal ligation (~1975) Family History Brother Heart disease Child Age: 53 Diabetes mellitus Hypertension High cholesterol Father Diabetes mellitus Heart disease Grandmother Diabetes mellitus Hypertension Mother Hypertension Grandmother Heart disease Sister Diabetes mellitus Hypertension Social History Smoking Status: Never smoker Smoking Status: Never smoker tobacco type: cigarettes alcohol intake frequency: a few times a month Substance Use Type: does not use Exam <DARIUS Fagan - Last Filed: 06/21/20 23:18> Narrative Exam Narrative: General appearance: well developed, well nourished, in no acute distress. Head: normocephalic, atraumatic, no scalp lesions, non-tender. ENT: Hearing grossly intact. Airway patent. Neck/Thyroid: neck supple, full range of motion, no visible masses or meningeal signs. No JVD, non-tender without lymphadenopathy. Skin: no suspicious rashes, lesions over visible areas. Warm and dry and appropriate color for ethnicity. Heart: no clubbing, no cyanosis, no edema. Lungs: Breathing even and unlabored. No stridor. No accessory muscles used. Able to speak in full sentences. Chest: normal shape and expansion. Abdomen: non-obese, non-distended. Neurologic: alert and oriented. 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 Psych: good eye contact, normal affect. Initial Vital Signs Initial Vital Signs: Vital Signs Temperature 97.5 F L 06/21/20 18:35 Pulse Rate 63 06/21/20 18:35 Respiratory Rate 16 06/21/20 18:35 Blood Pressure 143/65 H 06/21/20 18:35 Pulse Oximetry 97 06/21/20 18:35 Extrem Left lower extremity: knee Details: no tenderness and no swelling, lower leg Details: normal to inspection and no edema; no tenderness, ankle Details: normal to inspection; no tenderness and no swelling and foot Details: abnormal to inspection, toes with normal ROM, edema Location: of another digit Location: the 4th digit and the 5th digit, ecchymosis (dorsal aspect of foot and 4th and little toe), vascular exam Details: dorsalis pedis pulse present and normal capillary refill, tendon exam Details: active flexion normal and active extension normal and motor-sensory exam Details: light-touch normal; no unusual warmth, no abrasions, no lacerations and no puncture wound <Mel Kothari MD - Last Filed: 06/22/20 01:16> Initial Vital Signs Initial Vital Signs: Vital Signs Temperature 97.5 F L 06/21/20 18:35 Pulse Rate 63 06/21/20 18:35 Respiratory Rate 16 06/21/20 18:35 Blood Pressure 143/65 H 06/21/20 18:35 Pulse Oximetry 97 06/21/20 18:35 Scores <DARIUS Fagan - Last Filed: 06/21/20 23:18> GCS [place] coma scale eye opening: Spontaneous Vandana coma scale verbal response: Orientated Vandana coma scale motor response: Obey commands Vandana coma scale total score: 15 Course <El DARIUS [place] - Last Filed: 06/21/20 23:18> Orders Ordered: ED Orders 06/21/20 18:37 XR foot LT min 3V Stat Discontinued Medications Acetaminophen (Tylenol) 650 mg PO NOW ONE Stop: 06/21/20 19:02 Last Admin: 06/21/20 20:03 Dose: 650 mg Documented by: GUILLERMO Vital Signs Vital signs: Vital Signs - 8 hr 06/21/20 18:35 06/21/20 20:13 Temperature 97.5 F L Pulse Rate 63 76 Respiratory Rate 16 16 Blood Pressure 143/65 H 135/67 Pulse Oximetry 97 <Mel Kothari MD - Last Filed: 06/22/20 01:16> Orders Ordered: ED Orders 06/21/20 18:37 XR foot LT min 3V Stat Discontinued Medications Acetaminophen (Tylenol) 650 mg PO NOW ONE Stop: 06/21/20 19:02 Last Admin: 06/21/20 20:03 Dose: 650 mg Documented by: GUILLERMO Vital Signs Vital signs: Vital Signs - 8 hr 06/21/20 18:35 06/21/20 20:13 Temperature 97.5 F L Pulse Rate 63 76 Respiratory Rate 16 16 Blood Pressure 143/65 H 135/67 Pulse Oximetry 97 MDM - Extremity Injury (Lower) <El DARIUS [place] - Last Filed: 06/21/20 23:18> Differential Diagnosis Differential diagnosis: Likely fracture of toe and other (Foot sprain) Medical Records Attestation: I reviewed the patient's medical records. Lab Data Attestation: I reviewed the patient's lab results. Imaging Data XR-Foot LT: Radiologist's Impression: [address] [address] XRay Report Signed Patient: Madai Portillo LMR#: [id number] : 8Acct:[id number] Age/Sex: 70 / FDate of Service: 06/21/20 Loc: ED Accession Number: [id number] Procedure: XR foot LT min 3V Ordering Provider: El [place] PROCEDURE: XR FOOT LT MIN 3V INDICATIONS: fall TECHNIQUE: 3 views of the foot were acquired. COMPARISON: None. FINDINGS: Bones: No fractures or subluxation. There is a small ovoid lucency within the medial cuneiform along the navicular-cuneiform articulation compatible with a degenerative subchondral cyst. There are small posterior and plantar calcaneal enthesophytes. Soft tissues: There is a suspected small tibiotalar joint effusion. Achilles tendon appears intact. IMPRESSION: 1. No fracture or subluxation. Dictated by: Luigi Mccullough M.D. on 06/21/2020 at 18:51 Approved by: Luigi Mccullough M.D. on 06/21/2020 at 18:52 MDM Narrative Medical decision making narrative: This is a 70 year old female who presents to ED with left dorsal aspect of metatarsal and swelling and bruise to 4th and little toe after she walked into of glass sliding door accidentally walking into it. Patient is ambulatory. Intact sensation and motor function distally. X- ray test on left foot does not show fracture or subluxation. Affected toes have eric-taped and advised to use her ortho shoes for splinting effect. Patient medicated with Tylenol and advised to elevate during rest and use cool pack for another 24 hours. Return precautions were discussed with patient and patient verbalized understanding and agreement with the treatment plan. Discharge Plan Departure Patient Disposition: Home Clinical Impression: Contusion of foot Qualifiers: Encounter type: initial encounter Laterality: left Qualified Code(s): S90.32XA - Contusion of left foot, initial encounter Discharge Date/Time: 06/21/20 20:14 Instructions: DI for Contusion Activity Restrictions/Additional Instructions: You have been diagnosed with [left foot/toe contusion. No indication of fracture or dislocation per x-ray test today. Please eric tape her toes to splint and use your own ortho shoes for support.]. What to do: *Take your medications as directed. You can take [id number] Tylenol 650- 1000 mg up to 3 times a day as needed for pain. Elevate affected leg for swelling. Use cool pack for another 24 hours. You can use cool pack for 20-30 minutes at a time at least up to 4 times a day. *Follow up with your primary care provider in 2-3 days, call for an appointment. Let them know you were seen in the ED and that we asked you to be seen in follow up. *Return to ED if you have any new, worsening, or concerning symptoms, such as [worsening pain, numbness/tingling/weakness on affected foot, fever, chest pain, breathing difficulty, unable to tolerate fluids or any acute concerns]. Prescriptions: No Action mupirocin 2 % ointment 1 applic TOP BID Qty: 30 RF: 0 levothyroxine 88 mcg tablet 88 mcg PO DAILY Qty: 90 RF: 3 metformin 500 mg tablet 500 mg PO BID Qty: 180 RF: 3 bupropion HCl [Wellbutrin SR] 150 mg tablet sustained-release 12 hr 150 mg PO QAM Qty: 175 RF: 0 ropinirole [Requip] 0.25 mg tablet 0.5 mg PO HS Qty: 180 RF: 1 gabapentin 300 mg capsule 600 mg PO TID Qty: 540 RF: 3 spironolactone 25 mg tablet 25 mg PO DAILY RF: 0 clopidogrel 75 mg tablet 75 mg PO DAILY RF: 0 carvedilol 3.125 mg tablet 3.125 mg PO BID RF: 0 citalopram [Celexa] 20 mg tablet 20 mg PO DAILY Qty: 90 RF: 3 furosemide 80 mg tablet 80 mg PO DAILY Qty: 90 RF: 3 rosuvastatin 40 mg tablet 40 mg PO DAILY Qty: 90 RF: 3 lisinopril 2.5 mg tablet 2.5 mg PO DAILY Qty: 90 RF: 3 fluticasone propionate [Flonase Allergy Relief] 50 mcg/actuation spray,suspension 2 spray NASAL BEDTIME RF: 0 Referrals: Mathew De La Torre MD [Primary Care Provider] - <Mel Kothari MD - Last Filed: 06/22/20 01:16> Cosign ED Attending Cosanuragature Attestation: I was immediately available in the department for consultation throughout this patient's visit. I agree with documentation as above. Mel Kothari MD
== END 2020-06-21 20:14 | disposition home or self-care (01) ==
PROVIDERS: Emergency Provider Nurse Practitioner Family; PCP Family Medicine
DX: S90.32XA Contusion of left foot, initial encounter (principal); W22.8XXA Striking against or struck by other objects, initial encounter
CPT/HCPCS: 73630; 99283

== ENCOUNTER → 2020-08-22 08:41 | Outpatient (CLI) | payer MEDICARE, OTHER, SELFPAY ==
[2020-08-22 10:20] LABS: BUN Creatinine Ratio 11.2 (6-22); Blood Urea Nitrogen 11 mg/dL (7-17); Calcium 9.5 mg/dL (8.4-10.2); Carbon Dioxide 27 mmol/L (22-32); Chloride 105 mmol/L (98-107); Estimated Glomerular Filt Rate 55.8 mL/min (>60); Glucose 134 mg/dL (80-110); HEMOLYSIS < 15 (0-50); Hemoglobin A1C% w Est Avg Glu 6.1 % (4.0-6.0); Potassium 4.2 mmol/L (3.4-5.1); Sodium 140 mmol/L (137-145)
== END ==
PROVIDERS: PCP Family Medicine; Referring Provider Family Medicine; Visit Provider Family Medicine
DX: E11.9 Type 2 diabetes mellitus without complications (principal)
CPT/HCPCS: 36415; 80048; 83036

== ENCOUNTER → 2020-09-25 07:54 | Outpatient (CLI) | payer MEDICARE, OTHER, SELFPAY ==
[2020-09-25 09:11] LABS: Add Manual Diff / Slide Review NO; Basophils Absolute Auto 100 /uL (0-100); Eosinophils Absolute Auto 200 /uL (0-450); Eosinophils Percent Auto 2.1 % (2-4); Hematocrit 41.5 % (36-46); Hemoglobin 13.8 g/dL (12.0-16.0); Lymphocytes Absolute Auto 1900 /uL (1100-4500); Lymphocytes Percent Auto 25.7 % (25-40); Mean Corpuscular HGB Conc 33.3 % (30-36); Mean Corpuscular Hemoglobin 29.6 PG (26-34); Mean Corpuscular Volume 88.9 fL (80-100); Monocytes Absolute Auto 600 /uL (0-900); Monocytes Percent Auto 8.3 % (3-14); Neutrophils Absolute Auto 4600 /uL (1500-7000); Neutrophils Percent Auto 62.9 % (50-75); Platelet Count 98 X10^3/uL (150-400); Red Blood Cell Count 4.67 X10^6/uL (4.0-5.2); Red Cell Distribution Width 14.5 % (11.6-14.8); White Blood Cell Count 7.4 X10^3/uL (4.5-11.0)
[2020-09-25 09:28] LABS: BUN Creatinine Ratio 16.5 (6-22); Blood Urea Nitrogen 13 mg/dL (7-17); Calcium 9.5 mg/dL (8.4-10.2); Carbon Dioxide 30 mmol/L (22-32); Chloride 108 mmol/L (98-107); Cholesterol 131 mg/dL (140-199); Estimated Glomerular Filt Rate > 60.0 mL/min (>60); Glucose 136 mg/dL (80-110); HDL Cholesterol 46 mg/dL (40-60); HEMOLYSIS < 15 (0-50); LDL Cholesterol Calculated 49 mg/dL (<100); Potassium 4.2 mmol/L (3.4-5.1); Sodium 139 mmol/L (137-145); Triglycerides 180 mg/dL (35-150)
== END ==
PROVIDERS: PCP Family Medicine; Referring Provider Internal Medicine Cardiovascular Disease; Visit Provider Internal Medicine Cardiovascular Disease
DX: I25.10 Atherosclerotic heart disease of native coronary artery without angina pectoris (principal)
CPT/HCPCS: 36415; 80048; 80061; 85025

== ENCOUNTER → 2020-11-20 10:09 | Outpatient (CLI) | payer MEDICARE, OTHER, SELFPAY ==
[2020-11-20 10:47] LABS: Add Manual Diff / Slide Review NO; Basophils Absolute Auto 100 /uL (0-100); Basophils Percent Auto 1.2 % (0-2); Eosinophils Absolute Auto 200 /uL (0-450); Eosinophils Percent Auto 1.8 % (2-4); Hematocrit 42.1 % (36-46); Hemoglobin 14.3 g/dL (12.0-16.0); Lymphocytes Absolute Auto 2500 /uL (1100-4500); Lymphocytes Percent Auto 25.3 % (25-40); Mean Corpuscular Volume 88.1 fL (80-100); Monocytes Absolute Auto 800 /uL (0-900); Monocytes Percent Auto 7.9 % (3-14); Neutrophils Absolute Auto 6300 /uL (1500-7000); Neutrophils Percent Auto 63.8 % (50-75); Platelet Count 119 X10^3/uL (150-400); Red Blood Cell Count 4.78 X10^6/uL (4.0-5.2); Red Cell Distribution Width 14.8 % (11.6-14.8); White Blood Cell Count 9.9 X10^3/uL (4.5-11.0)
[2020-11-20 10:59] LABS: Hemoglobin A1C% w Est Avg Glu 6.6 % (4.0-6.0)
[2020-11-20 11:49] LABS: BUN Creatinine Ratio 12.6 (6-22); Blood Urea Nitrogen 11 mg/dL (7-17); Calcium 9.5 mg/dL (8.4-10.2); Carbon Dioxide 31 mmol/L (22-32); Chloride 102 mmol/L (98-107); Estimated Glomerular Filt Rate > 60.0 mL/min (>60); Glucose 139 mg/dL (80-110); HEMOLYSIS 17 (0-50); Potassium 3.7 mmol/L (3.4-5.1); Sodium 137 mmol/L (137-145)
== END ==
PROVIDERS: Family Medicine; PCP Family Medicine; Referring Provider Family Medicine; Visit Provider Family Medicine
DX: D69.6 Thrombocytopenia, unspecified (principal); E11.9 Type 2 diabetes mellitus without complications
CPT/HCPCS: 36415; 80048; 83036; 85025

== ENCOUNTER → 2021-02-01 14:16 | Outpatient (CLI) | payer MEDICARE, OTHER, SELFPAY ==
[2021-02-01] MEDS: COVID-19 VACC #1, MRNA(MOD) 100 MCG/0.5 ML VIAL IM (14:24)
== END ==
PROVIDERS: PCP Family Medicine; Visit Provider Internal Medicine
DX: Z23 Encounter for immunization (principal)
CPT/HCPCS: 0011A; 91301

== ENCOUNTER → 2021-03-01 14:20 | Outpatient (CLI) | payer MEDICARE, OTHER, SELFPAY ==
[2021-03-01] MEDS: COVID-19 VACC #2, MRNA(MOD) 100 MCG/0.5 ML VIAL IM (14:29)
== END ==
PROVIDERS: PCP Family Medicine; Visit Provider Internal Medicine
DX: Z23 Encounter for immunization (principal)
CPT/HCPCS: 0012A; 91301